=== PATIENT | female | born 1950 | race Caucasian/White ===

== ENCOUNTER 2020-11-18 10:00 | Outpatient (REF) | payer MEDICARE, SELFPAY ==
--- NOTE | ~2020-11-18 | US_ITS ---
EXAMINATION: US VENOUS ULTRASOUND WITH DOPPLER LOWER EXTREMITY, LEFT CLINICAL INFORMATION: Left calf pain. COMPARISON: None TECHNIQUE: Ultrasound of the deep veins is performed from the hip to the calf with compression sonography and color and pulse Doppler assessment. Spectral analysis with color-flow imaging is performed. FINDINGS: There is normal venous compression and respiratory variation and augmented flow. The visualized common femoral vein, superficial femoral vein, profunda femoral vein, popliteal vein, and the trifurcation region shows no evidence of deep venous thrombosis. There is no significant popliteal fossa cyst. If the patient's symptoms persist, followup ultrasound in 5 days 7 days might be of value to exclude proximal propagation from a non-visualized calf vein. US/US venous duplex LE LT IMPRESSION: No deep venous thrombosis demonstrated in the left lower extremity.
== END 2020-11-18 10:01 | disposition home or self-care (01) ==
LOC: HO.HMGCX 10:00
PROVIDERS: Visit Provider Internal Medicine
DX: M79.662 Pain in left lower leg (principal)
CPT/HCPCS: 93971

== ENCOUNTER → 2022-09-14 08:36 | Outpatient (BNVA) | payer MEDICARE, SELFPAY | PROVIDERS: PCP Internal Medicine; Visit Provider Internal Medicine Cardiovascular Disease | DX: R07.89 Other chest pain (principal); E78.5 Hyperlipidemia, unspecified | CPT/HCPCS: 93005; 99202 ==

== ENCOUNTER → 2022-09-28 09:30 | Outpatient (REF) | payer MEDICARE, SELFPAY ==
--- NOTE | 2022-09-28 09:35 | CA_ITS ---
Transthoracic Echocardiogram Patient (Last, First, Middle): Chiqui Valdez, Gender: Female Date of : 1950 Age: 72 Procedure Date: 09/28/2022 Procedure Type: Transthoracic Echocardiogram Location: OP Height: 152.4 cm Weight: 63.5 kg BSA: 1.60 m2 Heart Rate: 79 bpm BP: 155 / 82 mmHg Field Auto Appraiser: LISETH Referring MD: Chester Jackson MD Asbestos Removal Supervisor: Chester Jackson MD Symptoms: I10 - Essential (primary) hypertension Study Quality: Adequate ECG Rhythm: Sinus Conclusions: - 1. Normal LV systolic function with grade 1 diastolic dysfunction 2. Normal cardiac valvular Doppler 3. Normal RV systolic pressure 4. No pericardial effusion Findings Left Ventricle Normal left ventricular size, thickness, and systolic function. The visually estimated ejection fraction is between 60-65%. Spectral Doppler is indicative of an impaired relaxation filling pattern. E/E prime ratio is <8, consistent with normal filling pressures. Evidence suggests grade I (mild) diastolic dysfunction. Right Ventricle Normal right ventricular cavity size and systolic function. Atria Both atria are normal in size. Aortic Valve Normal aortic valve structure and function. There is no aortic valve stenosis. There is no aortic valve regurgitation. Mitral Valve Normal mitral valve structure and function. There is trace mitral valve regurgitation. There is no mitral valve stenosis. Pulmonic Valve The pulmonic valve is likely normal. Tricuspid Valve Normal tricuspid valve structure. There is trace tricuspid valve regurgitation. The right ventricular systolic pressure is normal. The right ventricular systolic pressure is 10 mmHg. Normal right atrial pressure. There is no evidence of pulmonary hypertension. Great Vessels All visible segments of the aorta are normal in size. The pulmonary artery was not well visualized. Venous The inferior vena cava is normal in size and collapses greater than 50% with inspiration. Pericardium/Pleural There is no evidence of pericardial effusion. Prior Study Comparison No prior study available for comparison. Measurements 2D Linear Measurements IVSd: 0.96 0.6-0.9/0.6-1.0 cm LVIDd: 3.68 3.9-5.3/4.2-5.9 cm LVIDd Index: 2.30 2.4-3.2/2.2-3.1 cm/m2 LVIDs: 2.56 2.0-3.6 cm LVPWd: 0.83 0.7-1.1 cm LA Diam: 2.70 2.7-3.8/3.0-4.0 cm LAIDs Index: 1.69 1.5-2.3 cm/m2 LV Mass: 119.04 67-162/88-224 g LV Mass Index: 74.40 43-95/49-115 g/m2 LVOT Diam: 2.00 3.0+(-)1.3 cm 2D Systolic Function EF 4C: 61.90 >55% EF 2C: 64.20 >55% EF BiP: 63.40 >55% Mitral Valve MV Pk E: 0.78 MV PK A: 0.88 MV Decel Time: 214.00 E/A: 0.90 E'Lateral: 10.40 E'Medial: 8.49 E/E' Med: 9.20 E/E' Lat: 7.50 PHT: 63.00 MVA PHT: 3.49 Decel [place]: 3.65 Aortic Valve AoV Pk Butch: 1.29 AoV Mn Butch: 0.87 AoV VTI: 0.27 AoV Pk Grad: 7.00 Aov Mn Grad: 3.00 AMANUEL Cont.VTI: 2.92 LVOT LVOT Pk Butch: 1.17 LVOT Mn Butch: 0.72 LVOT VTI: 0.25 LVOT Pk Grad: 5.00 LVOT Mn Grad: 2.00 LVOT Diam: 2.00 LVOT Area: 3.14 Diastolic Function MV Pk E: 0.78 MV Pk A: 0.88 E/A: 0.90 E'Medial: 8.49 E/E' Med: 9.20 E' Laterial: 10.40 E/E' Lat: 7.50 Right Ventricle TAPSE (mm): 24.80 TVS' Butch: 13.60 Tricuspid Valve TR Pk Butch: 1.36 TR Pk Grad: 7.00 RA Press: 3.00 RVSP: 10.00 Great Vessels Aorta Sinus of Valsalva: 2.96 2.0-3.[address] Ridge: 2.26 1.7-3.4 cm Updated in Other Vendor System with Status of Final Chester Jackson MD electronically signed on 09/29/2022 1:21:59 PM with status of Final
== END ==
LOC: HO.CARD 09:30
PROVIDERS: Visit Provider Internal Medicine Cardiovascular Disease
DX: I10 Essential (primary) hypertension (principal)
CPT/HCPCS: 93306

== ENCOUNTER → 2022-11-16 08:35 | Outpatient (BNVA) | payer MEDICARE, SELFPAY | PROVIDERS: PCP Internal Medicine; Referring Provider Internal Medicine; Visit Provider Internal Medicine Cardiovascular Disease | DX: E78.5 Hyperlipidemia, unspecified (principal) | CPT/HCPCS: 99212 ==

== ENCOUNTER 2025-08-21 06:27 | Day surgery (SDC) | payer MEDICARE, SELFPAY ==
--- OUTSIDE RECORDS SUMMARY | 2024-07-19 06:15 | XMS_ITS ---
Author Organization [facility] Address [address] [place] [address] Care Team Providers Care Real Estate Account Executive Name Role Phone Jorge WALKER, Daljit Primary Care Provider UnavailJosey Barroso Unavailable [phone] Laura Chen [phone] Encounters Encounter Location Date Provider Diagnosis [address] [address] 07/19/2024 Laura Chen Plan Of Treatment Next Appt Details Provider Name:Jimena henderson, 09/18/2025 11:00:00 AM, [address] [place], [address], Progress Notes * Jade COON LDOB: [birth year] (74 yo F)Acc No.[id number]:07/19/2024 Progress Note Patient: Jade PARRA Provider: Jenny Chen DPM :1950 A ge:73 Y S ex:Female Date:07/19/2024 Address:[address] [place], [place] [address], [place] Pcp:Daljit Patel MD Subjective: * Chief Complaints: * * Medical History: Objective: * Vitals: Assessment: Plan: * Treatment: * Images: * The named appointment provid er may or may not be the originator of this progress note, and it is not deemed complete until electronically signed by the appointment provider. Sign off status: Pending * Provider: Jenny Chen DPM Date: 09/18/2023 Generated for Evette Lujan on: 09/30/2024 05:00 PM EST
--- OUTSIDE RECORDS SUMMARY | 2024-09-20 09:15 | XMS_ITS ---
Author Organization [facility] Address [address] [place] [address] Care Team Providers Care Cops Name Role Phone Jorge WALKER, Daljit Primary Care Provider UnavailJosey Barroso Unavailable [phone] Laura Chen [phone] Encounters Encounter Location Date Provider Diagnosis [address] [address] 09/20/2024 Laura Chen Plan Of Treatment Next Appt Details Provider Name:Jimena henderson, 09/18/2025 11:00:00 AM, [address] [place], [address], Progress Notes * Jade COON LDOB: [birth year] (74 yo F)Acc No.[id number]:09/20/2024 Progress Note Patient: Jade PARRA Provider: Jenny Chen DPM :1950 A ge:74 Y S ex:Female Date:09/20/2024 Address:[address] [place], [place] [address] Pcp:Daljit Patel MD Subjective: * Chief Complaints: * * Medical History: Objective: * Vitals: Assessment: Plan: * Treatment: * Images: * The named appointment provid er may or may not be the originator of this progress note, and it is not deemed complete until electronically signed by the appointment provider. Sign off status: Pending * Provider: Jenny Chen DPM Date: 0 09/20/2024 Generated for Evette Luajn on: 09/30/2024 05:01 PM EST
--- OUTSIDE RECORDS SUMMARY | 2024-10-25 09:30 | XMS_ITS ---
Author Organization [facility] Address [address] [place] [address] Care Team Providers Care Field Nurse Name Role Phone Jorge WALKER, Daljit Primary Care Provider UnavailJosey Barroso Unavailable [phone] Laura Chen [phone] Encounters Encounter Location Date Provider Diagnosis [address] [address] 10/25/2024 Laura Chen Plan Of Treatment Next Appt Details Provider Name:Jimena henderson, 09/18/2025 11:00:00 AM, [address] [place] [address], [address], Progress Notes * Jade COON LDOB: [birth year] (74 yo F)Acc No.[id number]:10/25/2024 Progress Note Patient: Jade PARRA Provider: Jenny Chen DPM :1950 A ge:74 Y S ex:Female Date:10/25/2024 Address:[address] [place], [place] [address] Pcp:Daljit Patel MD Subjective: * Chief Complaints: * * Medical History: Objective: * Vitals: Assessment: Plan: * Treatment: * Images: * The named appointment provid er may or may not be the originator of this progress note, and it is not deemed complete until electronically signed by the appointment provider. Sign off status: Pending * Provider: Jenny Chen DPM Date: 0 10/25/2024 Generated for Evette Lujan on: 09/30/2024 05:01 PM EST
--- OUTSIDE RECORDS SUMMARY | 2024-12-13 05:30 | XMS_ITS ---
Author Organization [facility] Address [address] [place] [address] Care Team Providers Care Russet Repairer Name Role Phone Jorge WALKER, Daljit Primary Care Provider UnavailJosey Barroso Unavailable [phone] Laura Chen [phone] Encounters Encounter Location Date Provider Diagnosis [address] [address] 12/13/2024 Laura Chen Plan Of Treatment Next Appt Details Provider Name:Jimena henderson, 09/18/2025 11:00:00 AM, [address] [place], [address], Progress Notes * Jade COON LDOB: [birth year] (74 yo F)Acc No.[id number]:12/13/2024 Progress Note Patient: Jade PARRA Provider: Jenny Chen DPM :1950 A ge:74 Y S ex:Female Date:12/13/2024 Address:[address] [place], [place] [address], [place] Pcp:Daljit Patel MD Subjective: * Chief Complaints: * * Medical History: Objective: * Vitals: Assessment: Plan: * Treatment: * Images: * The named appointment provid er may or may not be the originator of this progress note, and it is not deemed complete until electronically signed by the appointment provider. Sign off status: Pending * Provider: Jenny Chen DPM Date: 0 12/13/2024 Generated for Evette Lujan on: 09/30/2024 05:02 PM EST
--- OUTSIDE RECORDS SUMMARY | 2025-01-09 04:00 | XMS_ITS ---
Author Organization [facility] Address [address] [place] [address] Care Team Providers Care Local Sales Associate Name Role Phone Daljit Patel MD Primary Care Provider Unavaila Josey Rust Unavailable [phone] Laura Chen [phone] Encounters Encounter Location Date Provider Diagnosis [address] [address] 01/09/2025 Laura Chen Plan Of Treatment Next Appt Details Provider Name:Jimena henderson, 09/18/2025 11:00:00 AM, [address] [place], [address], Progress Notes * Jade COON LDOB: [birth year] (74 yo F)Acc No.[id number]:01/09/2025 Progress Note Patient: Jade PARRA Provider: Jenny Chen DPM :1950 A ge:74 Y S ex:Female Date:01/09/2025 Address:[address] [place], [place] [address], [place] Pcp:Daljit Patel MD Subjective: * Chief Complaints: * * Medical History: Objective: * Vitals: Assessment: Plan: * Treatment: * Images: * The named appointment provid er may or may not be the originator of this progress note, and it is not deemed complete until electronically signed by the appointment provider. Sign off status: Pending * Provider: Jenny Chen DPM Date: 0 01/09/2025 Generated for Evette Dietz/[place] on: 09/30/2024 05:00 PM EST
--- OUTSIDE RECORDS SUMMARY | 2025-02-01 08:30 | XMS_ITS ---
Author Organization [facility] Address [address] [place] [address] Care Team Providers Care Wash Worker Name Role Phone Daljit Patel MD Primary Care Provider UnavailJosey Barroso [phone] Medications Medication SIG (Take, Route, Fr equency, Duration) Notes Start Date End Date Status Crestor 5 MG 1 tablet Orally Once a day Active Diovan 80 MG 1 tablet Orally Once a day Active Simvastatin 20 MG 1 tablet in the even ing Orally Once a day Not-Taking Encounters Encounter Location Date Provider Diagnosis [address] [address] 02/01/2025 Josey Zhu Plan Of Treatment Next Appt Details Provider Name:Jimena Xiao santiago, 09/18/2025 11:00:00 AM, [address] [place] [address], [address], Progress Notes * Paloma COONann LDOB: [birth year] (74 yo F)Acc No.[id number]:02/01/2025 Progress Note Patient: Jade PARRA Provider: Kiesha Zhu DPM :1950 A ge:74 Y S ex:Female Date:02/01/2025 Address:[address] [place], [place] [address] Pcp:Daljit Patel MD Subjective: * Chief Complaints: * * Medical History: * Medications: T aking Crestor 5 MG Tablet 1 tablet Orally Once a day , Taking Diovan 80 MG Tablet 1 tablet Orally Once a day , Not-Taking/PRN Simvastatin 20 MG Tablet 1 tablet in the evening Orally Once a day Objective: * Vitals: Assessment: Plan: * Treatment: * Images: * The named appointment provid er may or may not be the originator of this progress note, and it is not deemed complete until electronically signed by the appointment provider. Sign off status: Pending * Provider: Kiesha Zhu DPM Date: 0 02/01/2025 Generated for Evette joseph/Stanislav/[place]lem on: 09/30/2024 05:01 PM EST
--- OUTSIDE RECORDS SUMMARY | 2025-03-08 08:15 | XMS_ITS ---
Author Organization [facility] Address [address] [place] [address] Care Team Providers Care Risk Reduction Counselor Name Role Phone Jorge WALKER, Daljit Primary Care Provider Josey Kerns [phone] Encounters Encounter Location Date Provider Diagnosis [address] [address] 03/08/2025 Josey Zhu Plan Of Treatment Next Appt Details Provider Name:Jimena Xiao santiago, 09/18/2025 11:00:00 AM, [address] [place], [address], Progress Notes * Jade COON LDOB: [birth year] (74 yo F)Acc No.[id number]:03/08/2025 Progress Note Patient: Jade PARRA Provider: Kiesha Zhu DPM :1950 A ge:74 Y S ex:Female Date:03/08/2025 Address:[address] [place], [place] [address], [place] Pcp:Daljit Patel MD Subjective: * Chief Complaints: * * Medical History: Objective: * Vitals: Assessment: Plan: * Treatment: * Images: * The named appointment provid er may or may not be the originator of this progress note, and it is not deemed complete until electronically signed by the appointment provider. Sign off status: Pending * Provider: Kiesha Zhu, CHIRAG Date: 0 03/08/2025 Generated for Evette joseph/Stanislav/[place] on: 09/30/2024 05:01 PM EST
--- OUTSIDE RECORDS SUMMARY | 2025-07-31 17:00 | XMS_ITS | Encounter Summary ---
Author Organization [facility] Address [address] [place] [address] Phone Care Team Providers Care Family Services Coordinator Name Role Phone Daljit Patel MD Primary Care Provider [phone] Merlene Liu MD Unavailable [phone] [place] Lopez DO Unavailable [phone] Terrence Michael MD Unavailable Alexsander Rahman MD Unavailable [phone] Daljit Patel MD Unavailable [phone] Reason for Visit * Reason Onset Date Comments Change ultrasound order 07/10/2025 Encounter Details Date Type Department Care Team (Late st Contact Info) Description 07/10/2025 Telephone [facility] Internal Medicine [address] [place], [place] [phone] Daljit Patel MD [address] [place] [address] [email or web address] Change ultrasound order Social History Tobacco Use Types Packs/Day Years Used Date Smoking Tobacco: Never Smokeless Tobacco: Never Alcohol Use Standard Drinks/Week Comments Never 0 (1 standard drink = 0.6 oz pur e alcohol) Child or Family Care Answer Date Record ed Do you have problems with on e of the following making it difficult for you to work, study, or receive health care? No 01/23/2021 Education Answer Date Recorded Are you interested in more education? Not on raf e 01/29/2023 Are you concerned about learning? Not on file 01/29/2023 No 01/29/2023 No 01/29/2023 Food Answer Date Recorded Within the past 6 months we worried whether our food would run out before we got money to buy more. Never True 01/23/2021 Within the past 6 months the food we bought just didn't last and we didn't have enough money to get more. Never True Paying for Meds Answer Date Recorded Do you have trouble paying for medicines? No 01/23/2021 Paying Utility Bills Answer Date Record ed Do you have trouble paying your heating or elect ricity bill? No 01/23/2021 Transportation Answer Date Recorded Has the lack of transportati on kept you from medical appointments or from getting medications? No 01/23/2021 Unemployment Answer Date Recorded Are you currently unemployed or working on a part-time or temporary basis, and looking for work? No 01/23/2021 Digital Access Answer Date Recorded No 02/06/2023 No 02/06/2023 Reliable internet access at home? Not on file 02/06/2023 Device with a working camera? Not on file Intimate Partner Violence Answer Date R ecorded Denied Basic Needs Not on file 05/31/2025 In the past 12 months have y ou been in a relationship with a person who hurts, threatens, or tries to control you? No 05/31/2025 Worried food would run out Not on file 05/31 In the past 12 months have y ou been in a relationship with a person who hurts, threatens, or tries to control you? No 05/31/2025 Comments No Sex and Gender Information Value Date Recorded Sex Assigned at Not on file Legal Sex Female 6:03 PM EST Gender Identity Not on file Sexual Orientation Not on file documented as of this encounter Progress Notes * Renée Jacob PA-C - 07/12/2025 10:33 AM EDT Noted. * Fer Saldivar - 07/12/2025 10:30 AM EDT Called patient as we have not heard from [facility] to make sure she was all set. Spoke to patient and she ended up having the ultrasound done. * Renée Jacob PA-C - 07/12/2025 9:44 AM EDT Noted, please keep me updated regarding the imaging orders as a limited abdominal ultrasound is really all that is indicated for this patient based off of her symptoms. * Fer Saldivar - 07/12/2025 9:31 AM EDT Patient called in states she is at [facility] and is stating that they are telling her she needs an order for the entire abdomen per Radiology. I asked her to have the manufacturing tech call me directly as they told us 2 days ago the order was okay. * Renée Jacob PA-C - 07/10/2025 9:54 AM EDT Noted, thanks. * Uche Mendez - 07/10/2025 9:33 AM EDT Made call to [facility], spoke with antione informed of Ronak's message. She checked with a tech and they said the order is fine since they know we are looking for the issue with the appendix. The order they have is okay. * Renée Jacob PA-C - 07/10/2025 9:06 AM EDT We have no specific US order for appendix, just limited abdominal US. * Fer Saldivar - 07/10/2025 8:50 AM EDT Antione from [facility] Radiology called stating that patient is coming in today but the abdomen ultrasound order is incorrect and needs to be ultrasound appendix specifically. Needs new order faxed to [phone] documented in this encounter Plan of Treatment Upcoming Encounters Date Type Department Care Team (Late st Contact Info) Description 08/09/2025 2:00 PM EST Office Visit [facility] Internal Medicine [address] [place] [address] Daljit Patel MD [address] [place] [address] documented as of this encounter Visit Diagnoses Not on filedocumented in this encounter Additional Health Concerns Assessment Noted Time PHQ-2 Depression Total Score: 0 05/23/20 25 3:28 PM EDT documented as of this encounter Care Teams Family Services Coordinator Relationship Specialty Start Date End Date Daljit Patel MD [address] [place] [address] PCP - General Internal Medicine 03/28/20 Merlene Liu MD [address] [place] [address] [email or web address] Endocrinology 07/10/20 [place] Lopez DO [address] [place] [address] 07/10/20 Terrence Michael MD [address] [place] [address] Internal Medicine 07/10/20 Alexsander Rahman MD [address] [place] [address] Surgical Oncology 07/10/20 Daljit Patel MD [address] [place] [phone] Insurance Assigned Provider 12/17/23 documented as of this encounter Additional Source Comments The information contained in this document represents components of the legal health record. It is not the complete legal health record.[facility]
--- OUTSIDE RECORDS SUMMARY | 2025-07-31 17:00 | XMS_ITS | Encounter Summary ---
Author Organization [facility] Address [address] [place] [address] [place] [address] Phone Care Team Providers Care Dialysis Clinical Manager Name Role Phone Daljit Patel MD Primary Care Provider [phone] Merlene Liu MD Unavailable [phone] [place] Lopez DO Unavailable Terrence Michael MD Unavailable [phone] Alexsander Rahman MD Unavailable [phone] Daljit Patel MD Unavailable [phone] Reason for Visit * Reason Onset Date Comments Question on labs 05/24/2025 Encounter Details Date Type Department Care Team (Late st Contact Info) Description 05/24/2025 Telephone [facility] Internal Medicine [address] [place], [place] [phone] Daljit Patel MD [address] [place] [address] [email or web address] Question on labs Social History Tobacco Use Types Packs/Day Years [...] ecorded Denied Basic Needs Not on file 05/02/2024 In the past 12 months have y ou been in a relationship with a person who hurts, threatens, or tries to control you? No 05/02/2024 Worried food would run out Not on file 05/02 In the past 12 months have y ou been in a relationship with a person who hurts, threatens, or tries to control you? No 05/02/2024 Comments No Sex and Gender Information Value Date Recorded Sex Assigned at Not on file Legal Sex Female 6:03 PM EST Gender Identity Not on file Sexual Orientation Not on file documented as of this encounter Progress Notes * Fer Saldivar - 05/24/2025 4:59 PM EDT Patient called wondering about her urine results and if she has a UTI. Spoke with provider who states we need to wait to see a culture. Relayed message to patient who was appreciative. documented in this encounter Plan of Treatment Upcoming Encounters Date Type Department Care Team (Late st Contact Info) Description 08/09/2025 2:00 PM EST Office Visit [facility] Internal Medicine [address] [place] [address] Daljit Patel MD [address] [place] [address] documented as of this encounter Visit Diagnoses Not on filedocumented in this encounter Additional Health Concerns Assessment Noted Time PHQ-2 Depression Total Score: 0 05/23/20 25 3:28 PM EDT documented as of this encounter Care Teams Dialysis Clinical Manager Relationship Specialty Start Date End Date Daljit Patel MD [address] [place] [phone] PCP - General Internal Medicine 03/28/20 Merlene Liu MD [address] [place] [phone] [email or web address] Endocrinology 07/10/20 [place] Lopez DO [address] [place] [address] 07/10/20 Terrence Michael MD [address] [place] [phone] Internal Medicine 07/10/20 Alexsander Rahman MD [address] [place] [phone] Surgical Oncology 07/10/20 Daljit Patel MD [address] [place], [place] [phone] [email or web address] Insurance Assigned Provider 12/17/23 documented as of this encounter Additional Source Comments The information contained in this document represents components of the legal health record. It is not the complete legal health record.[facility]
--- OUTSIDE RECORDS SUMMARY | 2025-07-31 17:00 | XMS_ITS | Encounter Summary ---
Author Organization [facility] Address [address] [place] [address] Phone Care Team Providers Care Trimming Inspector Name Role Phone Daljit Patel MD Primary Care Provider [phone] Merlene Liu MD Unavailable [phone] Diana Lopez DO Unavailable [phone] Terrence Michael MD Unavailable [phone] Alexsander Rahman MD Unavailable Daljit Patel MD Unavailable [phone] Reason for Visit * Reason Comments Medication Refill Encounter Details Date Type Department Care Team (Late st Contact Info) Description 07/21/2025 Refill [facility] [address] [place], [place] [phone] Daljit Patel MD [address] [place] [address] [email or web address] Medication Refill Social History Tobacco Use Types Packs/Day Years [...] as of this encounter Progress Notes * Toña Umanzor CMA - 07/22/2025 8:01 AM EST Rx Care Gap Status - Instructions for Clinical Staff (prescriber discretion applies): > Mismatch review guide > N/a - No action needed Visit Info Last visit: 07/03/2025 Renée Jacob PA-C - Internal Medicine [facility] > Requested f/u: Return if symptoms worsen or fail to improve. Upcoming visit: 08/09/2025 Daljit Patel MD - [facility] ACTIONS TAKEN BY Toña Umanzor CMA - Updated rx duration per protocol. Cholesterol Medication Rx Protocol - rosuvastatin calcium Criteria met; renew for up to 12 months. Visit in the past 14 months: Yes Clinical criteria: - Lipid panel within past year: Yes Lab Results Component Value Date LDL 94 12/27/2024 HDL 73 12/27/2024 CARDIAC RISK RATIO 2.5 (L) 12/27/2024 TRIGLYCERIDES 59 12/27/2024 CHOLESTEROL 179 12/27/2024 documented in this encounter Plan of Treatment Upcoming Encounters Date Type Department Care Team (Late st Contact Info) Description 08/09/2025 2:00 PM EST Office Visit [facility] Internal Medicine [address] [place] [address] Daljit Patel MD [address] [place] [address] [email or web address] documented as of this encounter Visit Diagnoses Diagnosis Hyperlipidemia Other and unspecified hyperlipidemia documented in this encounter Additional Health Concerns Assessment Noted Time PHQ-2 Depression Total Score: 0 05/23/20 25 3:28 PM EDT documented as of this encounter Care Teams Trimming Inspector Relationship Specialty Start Date End Date Daljit Patel MD [address] [place] [address] [email or web address] PCP - General Internal Medicine 03/28/20 Merlene Liu MD [address] [place] [address] [email or web address] Endocrinology 07/10/20 Diana Lopez DO [address] [place] [phone] 07/10/20 Terrence Michael MD [address] [place] [address] [id number] Internal Medicine 07/10/20 Alexsander Rahman MD [address] [place] [address] Surgical Oncology 07/10/20 Daljit Paetl MD [address] [place] [address] Insurance Assigned Provider 12/17/23 documented as of this encounter Additional Source Comments The information contained in this document represents components of the legal health record. It is not the complete legal health record.[facility]
--- OUTSIDE RECORDS SUMMARY | 2025-07-31 17:00 | XMS_ITS | Encounter Summary ---
Author Organization [facility] Address [address] [place] [address] Phone Care Team Providers Care Social Worker Palliative Care Name Role Phone Daljit Patel MD Primary Care Provider [phone] Merlene Liu MD Unavailable [phone] Diana Lopez DO Unavailable [phone] Terrence Michael MD Unavailable Alexsander Rahman MD Unavailable [phone] Daljit Patel MD Unavailable [phone] Reason for Visit * Reason Onset Date Comments Continued abdominal pain 06/28/2025 Encounter Details Date Type Department Care Team (Late st Contact Info) Description 06/28/2025 Telephone [facility] Internal Medicine [address] [place], [place] [phone] Daljit Patel MD [address] [place] [address] [email or web address] Continued abdominal pain Social History Tobacco Use Types Packs/Day Years [...] as of this encounter Progress Notes * Donna Calhoun - 07/09/2025 4:32 PM EDT New US Orders faxed to [facility] [phone]/confirmation received * Donna Calhoun - 07/09/2025 4:20 PM EDT [facility] states they need new US orders - US order for Appendix and US order for Renal - and fax to [phone] * Donna Calhoun - 07/09/2025 4:03 PM EDT Spoke to Carlie at [facility] and advise of rule out * Renée Jacob PA-C - 07/09/2025 3:46 PM EDT Rule out appendicitis/kidney stone * Donna Calhoun - 07/09/2025 3:36 PM EDT Received call from Carlie at [facility] - patient has US scheduled for tomorrow and they need to know what US is ruling out or they will have to cancel appt - please advise Will contact Carlie at [phone] option 2 to relay rule out * Fer Saldivar - 07/01/2025 9:36 AM EDT Spoke to patient and she does have colonoscopy scheduled for August 21 could not get an earlier date. She states she would like to see [facility] for this. Scheduled 07/01 (gave 40 min) * Daljit Patel MD - 06/28/2025 7:14 PM EDT I think she should think about getting her colonoscopy set up if she has not done so. Put her on cancellation list to see me in a few weeks or she can see someone else here sooner. * Fer Saldivar - 06/28/2025 4:04 PM EDT Patient called states provider told her if she continues with the intermittent abdominal pain to let him know and he will get her in . Please advise as she states she is still having it. documented in this encounter Plan of Treatment Upcoming Encounters Date Type Department Care Team (Late st Contact Info) Description 08/09/2025 2:00 PM EST Office Visit [facility] Internal Medicine [address] [place] [address] Daljit Patel MD [address] [place] [address] [email or web address] documented as of this encounter Procedures Procedure Name Priority Date/Time Associated Diagnosis Comments US KIDNEYS Routine 07/09/2025 4:24 PM EDT Right flank pain Lower abdominal pain US ABDOMEN LIMITED Routine 07/09/2025 4:24 PM EDT Lower abdominal pain documented in this encounter Visit Diagnoses Diagnosis Right flank pain- Primary Abdominal pain, unspecified site Lower abdominal pain Abdominal pain, other specified site documented in this encounter Additional Health Concerns Assessment Noted Time PHQ-2 Depression Total Score: 0 05/23/20 25 3:28 PM EDT documented as of this encounter Care Teams Social Worker Palliative Care Relationship Specialty Start Date End Date Daljit Patel MD [address] [place] [address] [email or web address] PCP - General Internal Medicine 03/28/20 Merlene Liu MD [address] [place] [address] [email or web address] Endocrinology 07/10/20 Diana Lopez DO [address] [place] [address] 07/10/20 Terrence Michael MD [address] [place] [address] Internal Medicine 07/10/20 Alexsander Rahman MD [address] [place] [address] Surgical Oncology 07/10/20 Daljit Patel MD [address] [place] [address] Insurance Assigned Provider 12/17/23 documented as of this encounter Additional Source Comments The information contained in this document represents components of the legal health record. It is not the complete legal health record.[facility]
--- OUTSIDE RECORDS SUMMARY | 2025-07-31 17:01 | XMS_ITS | Data Portability ---
Author Organization [place] [facility] Address [address] [place] [phone] Assessment Encounter Date Assessment Date Assessment LastModified by Organization Details LastModified Time 04/18/2024 04/18/2024 73 year old female with three weeks of intermittent left sided sore throat. History of burning mouth syndrome and LPR. On examination today her oral mucosa is normal in appearance. There is no mucosal tongue abnormality as questioned. Tonsils are small and normal in appearance. There is no adenopathy. Fiberoptic laryngoscopy is normal with the exception of some mild arytenoid swelling. Reassurance was provided there is nothing concerning on exam. Her sore throat could be viral, environmental, or reflux related. Recommend she start Pepcid at bedtime for six weeks. She can also use salt water gargles. She will contact me if symptoms do not improve or worsen. 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 Lab None recorded . Referral None recorded . Procedures None recorded . Surgeries None recorded . Imaging None recorded . Medication Orders Pepcid 20 mg tablet 024 04/18/20 24 perfecto [id number], [address] [facility], [place], [address], 4 10:01:49 Patient TargetsNo targets recorded. Patient InstructionsNo instructions recorded. Reason for Referral None Reported. Problems Name Problem SNOMED Code Status Onset Date Resolution Date Notes Provider Name and Address Organization Details Recorded Time Allergic rhinitis 17848766 Active 2018 Other allergic rhinitis; Note: Date Diagnosed : 05/02/2019 11:28 AM (J30.89) Not Available [facility] 4 02:17:46 Headache 38239015 Active 2018 Facial pain NOS; Note: Date Diagnosed : 05/02/2019 11:25 AM (R51) Not Available [facility] 4 02:17:20 Pharyngea l dysphagia 37018008905 105 Active 2019 Dysphagia , pharyngea l phase; Note: Date Diagnosed : 12/19/2019 2:25 PM (R13.13) Not Available [facility] 4 02:17:26 Gastroeso phageal reflux disease without esophagit is 620670604 Active 2019 Gastro-es ophageal reflux disease without esophagit is; Note: Date Diagnosed : 12/19/2019 2:25 PM (K21.9) Not Available [facility] 4 02:17:49 Pain in throat 933281798 Active 2023 Zayda torres [place] - [facility] 4 12:19:10 Problem Notes None recorded. Procedures Surgical History Date Name Laterality Status Provider Name and Address Organization Details Recorded Time 04/18/20 24 Fiberoptic Laryngoscopy (Comprehensive) completed Zayda Barakat [place] - [facility] 04/18/2024 12:18:49 Imaging Results None recorded. Procedure Notes None recorded. Medical Equipment None Reported. Allergies Allergen ID Allergen Name Allergen Category Reaction Reaction Severity Criticality Documentation Date Start Date Code Code System Note Provider Name and Address Organization Details Recorded Time 17007 Bactrim medicatio n hives Not available Not available 01/24/2024 06942 9 RxNorm React ion: Hives ; Not Available [facility] 4 00:49:26 89930 Macrobid medicatio n Not available Not available Not available 01/24/2024 98676 1 RxNorm React ion: Liver funct ion tests abnor mal; Not Available [facility] 4 00:49:41 Medications Name Sig Start Date Stop Date Status Note LastModified by Organization Details LastModified Time Prescripti on - Renewal active Not Available Not Available Not Available valacyclov ir 1 gram tablet TAKE 2 TABLETS BY MOUTH AT THE FIRST SIGN OF OUTBREAK, AND THEN TAKE 2 TABLETS BY MOUTH 12 HRS LATER active Not Available Not Available No t Available Diovan 80 mg tablet active Not Available Not Available No t Available famotidine 20 mg tablet TAKE 1 TABLET EVERY DAY BY ORAL ROUTE AT BEDTIME FOR 45 DAYS. 2023 active Not Available Not Available Not Avai lable lorazepam 0.5 mg tablet active Not Available Not Available Not Available erythromyc in 5 mg/gram (0.5 %) eye ointment APPLY 1/4 INCH STRIP INTO LEFT EYE AT BEDTIME NEEDED active Not Available Not Available No t Available fluoxetine 10 mg capsule active Not Available Not Available Not Available mupirocin 2 % topical ointment APPLY TWICE A DAY TO OPEN SKIN active Not Available Not Available No t Available estradiol 0.01% (0.1 mg/gram) vaginal cream PLEASE SEE ATTACHED FOR DETAILED DIRECTION S active Not Available Not Available No t Available fluticason e propionate 50 mcg/actuat ion nasal spray,susp ension 1 puff into both nostrils once a day 2018 active Medicatio n ID: [id number] Du ration Value: 30 Prescrib ed By Name: Ildefonso Paula MD Brand Name: fluticaso ne propionat e Send Method: E-Prescri bed Subs Allowed: subs [place] Medica tionGener icName: fluticaso ne propionat e Not Available Not Available Not Available rosuvastat in 5 mg tablet active Not Available Not Available Not Available Vitals Date Recorded Body height Body mass index (BMI) Body weight Provider Name and Address Organization Details Last Updated DateTime 04/18/2024 154.94 cm 25.5 kg/m2 35237.97 g Elizabeth Rodriguez [place] - [facility] 04/18/2024 11:13:10 Social History None recorded. Functional Status None recorded. Mental Status None recorded. Family History Nothing Reported. Medical History No medical history recorded. Gynecological HistoryNo gynecological history recorded. Obstetrics History GPAL:G 0 P 0 0 0 0 Past Encounters Encounter ID Performer Location Encounter Start Date Encounter Closed Date Diagnosis/Indication Diagnosis SNOMED-CT Code Diagnosis ICD10 Code Diagnosis IMO Codes Diagnosis Note [id number] ZAYDA BARAKAT PA-C [facility] on [address] [place] [phone] 2 04/18/2024 11:06:08 04/18/2024 13:38:02 Pain in throat 035638905 R07.0 Gastroesop hageal reflux disease without esophagitis 519160741 K21.9 Health Concerns Section Related Observation LastModified by Organization Detai ls LastModified Time None Recorded Concern Status LastModified by Organization Details LastModified Time None Recorded Advance Directives Directive None Recorded Payers Insurance Date Sequence Insurance Name Policy Number Policy Vega Covered Member ID Vega Member ID Guarantor Name 04/16/2024 1 [place] [employer] Chiqui Dillardrien [id number] Chiqui Dillardrien 04/16/2024 2 [place] [id number] Chiqui Dillardrien [id number] Chiqui Dillardrien Notes Date Note Type Note Provider Name and Address Organization Details Recorded Time 04/18/2024 text/html ROS as noted in the HPI 73 year old female with a history of burning mouth syndrome, presents today with three to four weeks of left sided throat and neck pain.The pain is intermittent. She has no trouble swallowing. Reports some associated left tongue irritation as well. She is a lifetime non smoker.History of LPR in the past. Notes occasional heartburn currently. History cervical spine spondylosis. She is unsure if this may be related to her symptoms. Zayda torres [place] - [facility] 04/18/2024 12:23:32 OBGyn Episode No OBEpisode recorded.
--- OUTSIDE RECORDS SUMMARY | 2025-07-31 17:01 | XMS_ITS | Patient Health Record ---
Author Organization [facility] Address [address] [place] [address] Care Team Providers Care Light Out Examiner Name Role Phone Daljit Patel MD Primary Care Provider Unavaila massiel Zhu Josey Unavailable [phone] Black, Laura Unavailable [phone] Jimena Chen Unavailable [phone] Allergies Allergen (clinical drug ingredient) Drug/Non Drug Allergy documented on EMR Reaction Allergy Type Onset Date Status sulfamethoxazole / trimethoprim Bactrim Unknown Drug Allergy Active nitrofurantoin, macrocrystals / nitrofurantoin, monohydrate Macrobid Unknown Drug Allergy Active Reason For Referral No Information Medications Medication SIG (Take, Route, Fr equency, Duration) Notes Start Date End Date Status Crestor 5 MG 1 tablet Orally Once a day Active Simvastatin 20 MG 1 tablet in the even ing Orally Once a day Not-Taking Diovan 80 MG 1 tablet Orally Once a day Active Immunizations Vaccine Route Administration Date Status Comme nts Influenza Unknown 06/12/2024 Administered Influenza Unknown 05/27/2025 Administered COVID-19 Pfizer BioNTech Vaccine Unknown 10/28/2020 Administered Second Dose: 11/25/2020 Social History Tobacco Use: Social History Observation Description Date Details (start date - stop date) Never Smoker NA - NA Tobacco use other than smoking: Question Answer Notes Are you an other tobacco user? No Tobacco Control (Standard) Question Answer Notes Tobacco use: Nonsmoker Additional Findings: Tobacco non-user Current no nsmoker AUDIT-C (Standard) Question Answer Notes Did you have a drink containing alcohol in the p ast year? No Points 0 Interpretation Negative Vital Signs Blood pressure diastolic 65 mm Hg 06/03/2025 Height 5ft in 06/03/2025 Blood pressure systolic 126 mm Hg 06/03/2025 Weight 135 lbs 06/03/2025 BMI 26.36 kg/m2 06/03/2025 Procedures Procedure Date Ordered Date Performed Result Body Sit e 84166-GXCPEBI NAIL, 1-5 02/18/2025 N/A 00243-Xeiczvkw Plate 02/18/2025 N/A 56772-UWTP SKIN LESIONS, OVER 4 06/03/2025 N/A D6264-YRRFSPYC DYSTROPHIC NAILS ANY # 06/03/2025 N/A Encounters Encounter Location Date Provider Diagnosis [facility] [address] 02/18/2025 Jimena Chen Ingrown nail L60.0 ; Pain in right toe(s) M79.674 and Onychomycosis B35.[address] [facility] [address] 06/03/2025 Jimena Chen Acquired keratosis [keratoderma] palmaris et plantaris L85.1 and Other nail disorders L60.[address] [place] [address] [address] 09/19/2024 Josey Roberts [facility] [address] 10/24/2024 Joseykala Zhu [facility] [address] 12/13/2024 [facility] [place] [address] [address] 01/08/2025 Laura Chen [facility] [address] 02/18/2025 Josey Zhu Assessments Encounter Date Diagnosis (ICD Code) Assessment Notes Treatment Notes Treatment Clinical Notes Section Notes 02/18/2025 Ingrown nail (ICD-10 - L60.0) 06/03/2025 Acquired keratosis [keratoderma] palmaris et plantaris (ICD-10 - L85.1) 06/03/2025 Other nail disorders (ICD-10 - L60.8) 02/18/2025 Pain in right toe(s) (ICD-10 - M79.674) 02/18/2025 Onychomycosis (ICD-10 - B35.1) Plan Of Treatment Pending Test Test Name Order Date 18237-OQPVWNQ NAIL, 6 OR MORE 12/09/2014 33952-ISVITPY NAIL, 6 OR MORE 08/04/2015 05381-GYJPPAB NAIL, -04/17/2014 47889-NUWYCOE NAIL, -03/31/2015 76873-ZNCWENF NAIL, -11/05/2015 80202-EPCVSIL NAIL, -02/04/2016 52435-IULDTQK NAIL, -02/18/2025 14291-Usdk Destruction, -02/04/2016 01129-Ipmv Destruction, -11/05/2015 88792-Sfsziras Plate 03/31/2015 64537-Eviciejb Plate 02/18/2025 80582-Zgfwipnb Plate Each Additional 62427-XGZC SKIN LESIONS, OVER 4 09/30/19 17 00362-CWPD SKIN LESIONS, OVER 4 10/20/19 18 52682-VQBW SKIN LESIONS, OVER 4 01/20/20 21 60644-QGFK SKIN LESIONS, OVER 4 06/03/20 25 42169-QGKB SKIN LESIONS, OVER 4 07/05/20 24 91461-ZJAX SKIN LESIONS, OVER 4 07/16/20 22 31535-LPMW SKIN LESIONS, OVER 4 10/29/19 23 65184-LYOA NAIL(S) 10/20/2017 60776-PVSZ NAIL(S) 09/30/2016 C9453-JZDDOGDY DYSTROPHIC NAILS ANY # F9470-EHITYRAV DYSTROPHIC NAILS ANY # O1384-LKIJDKYE DYSTROPHIC NAILS ANY # X2463-UUUDZUAJ DYSTROPHIC NAILS ANY # V7760-BUGASNNE DYSTROPHIC NAILS ANY # Next Appt Details Provider Name:Jimena Xiao santiago, 09/18/2025 11:00:00 AM, [address] [place] [address], [place], [address], Insurance Providers Payer Name Payer Address Payer Phone Subscriber Number Group Number Insured Name Patient Relationship to Insured Coverage Start Date Coverage End Date Medicare National [facility] [address] [place] [address] [id number] Jade Mg Self - patient is the insured [employer] [address] [place] [address] [phone] [id number] Jade Mg Self - patient is the insured Medical (General) History Medical History History ICD Code High blood pressure Measles Mumps Chicken pox CAD Surgical History Surgery Date(Month/Year) lazy eye correction PT refuses to answer or see AMY Hospitalization History Reason Date(Month/Year) PT refuses to answer or see AMY
--- OUTSIDE RECORDS SUMMARY | 2025-07-31 17:01 | XMS_ITS | Clinical Summary ---
Author Organization [facility] Address [address] [place] [id number] Phone Care Team Providers Care Boning Room Worker Name Role Phone Daljit Patel MD Primary Care Provider [phone] Merlene Liu MD Unavailable [phone] Diana Lopez DO Unavailable [phone] Terrence Michael MD Unavailable [phone] Alexsander Rahman MD Unavailable Daljit Patel MD Unavailable [phone] Allergies Active Allergy Reactions Criticality Noted Date Comments Amoxicillin-Pot Clavulanate Rash Low 11/04/2020 Possible allergy to augmentin. See er visit to [facility] [place] in media 11/04/20 Nitrofurantoin Hepatitis Medium 05/22/2018 Elevated liver function testing Nitrofurantoin Monohyd/M-Cryst Unknown 11/21/2020 Penicillin Unknown 12/31/2024 Simvastatin Myalgia 05/20/2022 Sulfamethoxazole-Trimeth oprim Hives,Itching,Swell ing,Unknown 05/21/2013 4- 5 years ago. 1-2 weeks after completion of bactrim. Medications MULTIVITAMIN ORAL Take 1 tablet by mouth daily. Active Lactobac no.41/Bifidobac t no.7 (PROBIOTIC-10 ORAL) Take 1 capsule by mouth daily. 05/21/20 13 Active cranberry fruit extract (CRANBERRY ORAL) Take 2 tablets by mouth daily. 05/21/20 13 Active valACYclovir (VALTREX) 1000 MG tablet PRN 01/10/20 19 Active calcium citrate-vitamin D3 315 mg- 250 unit per tablet Take 1 tablet by mouth daily. 90 tablet 3 03/28/20 20 Active estradioL (ESTRACE) 0.01 % (0.1 mg/gram) vaginal cream Place 0.5 g vaginally 2 (two) times a week. As needed 30 g 1 05/03/20 22 Active mupirocin (BACTROBAN) 2 % ointment Apply topically 2 (two) times a day. As needed 05/02/20 22 Active clindamycin (CLEOCIN T) 1 % lotion As needed 03/03/20 22 Active fluticasone propionate (FLONASE) 50 mcg/actuation nasal spray 2 sprays by Nasal route daily. 16 g 12 10/08/19 23 Active Additional Information Patient taking differently:2 spray NasalDaily as needed, Reported on 07/03/2025 levocetirizine (XYZAL) 5 MG tablet Take 5 mg by mouth daily as needed for allergies. Active CLINPRO 5000 1.1 % Pste as needed. 02/02/20 23 Active erythromycin (ROMYCIN) ophthalmic ointment Place 0.5 inches into the left eye nightly at bedtime as needed. 01/31/20 24 Active famotidine (PEPCID) 20 MG tablet Take 20 mg by mouth nightly at bedtime. 04/18/20 24 Active FLUoxetine (PROZAC) 10 MG capsule TAKE 1 CAPSULE TWICE A WEEK 24 capsule 3 04/08/20 25 Active DIOVAN 80 mg tabletIndicatio ns:Essential hypertension TAKE 1 TABLET DAILY 90 tablet 3 04/08/20 25 Active LORazepam (ATIVAN) 0.5 MG tabletIndicatio ns:Anxiety Take 1 tablet (0.5 mg total) by mouth 2 (two) times a day as needed for anxiety. 180 tablet 1 06/21/20 25 Active rosuvastatin (CRESTOR) 5 MG tabletIndicatio ns:Hyperlipidem ia TAKE 1 TABLET DAILY 90 tablet 3 07/22/20 25 Active rosuvastatin (CRESTOR) 5 MG tabletIndicatio ns:Hyperlipidem ia Take 1 tablet (5 mg total) by mouth daily. 90 tablet 3 05/11/20 24 025 Discontinued Active Problems Problem Noted Date Diagnosed Date Colicky RLQ abdominal pain 07/03/2025 Assessment & Plan (07/03/2025 12:22 PM EDT): She has had intermittent colicky migratory abdominal pain for over a month without associated diarrhea, constipation, nausea, vomiting, hematochezia, urinary symptoms. No red flag symptoms such as unintentional weight loss noted. Afebrile, hemodynamically stable. Benign abdominal exam in the office today. Has an upcoming colonoscopy scheduled in August 2025. Recently had lab work including a CMP, CBC, thyroid panel, A1c, ESR/CRP, and UA, all of which were negative. She does report that the majority of the time her symptoms are located along the right lower quadrant, no palpable abnormalities. Will obtain an ultrasound of the right lower quadrant to further assess, although I suspect will be benign. Advised symptomatic management and to follow-up with GI with a colonoscopy. Acute pain of left knee 07/03/2025 Assessment & Plan (07/03/2025 12:22 PM EDT): On exam there are no palpable deformities, no joint instability. Suspect a strain. Advised pain management with Tylenol/ibuprofen, compression bandage, ice, rest, and elevation. Advised patient that this should resolve spontaneously over time. Discussed obtaining a knee x-ray, patient would like to hold off at this time. 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 Patient comes in with a 10-day history of intermittent left calf pain. 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 Vaginal atrophy 06/21/2019 Fibrocystic breast changes of both breasts 04/26 Hypertensive disorder 09/14/2014 Overview (11/02/2014): Hypertensive disorder Anxiety 06/01/2013 Overview (01/15/2021): Overview: Anxiety Overview: Anxiety Encounters Date Type Department Care Team Description 07/21/2025 Refill [facility] Internal Medicine [address] [facility] [place] [address] Daljit Patel MD Medication Refill 07/12/2025 Orders Only [facility] Internal Medicine [address] [place] [address] ProviderBrooke MD 07/10/2025 Telephone [facility] Internal [facility] [address] [place] [address] Daljit Patel MD Change ultrasound order 07/03/2025 11:20 AM EDT Office Visit [facility] Internal [facility] [address] [place] [address] Renée Jacob PA-C Colialdairy RLQ abdominal pain (Primary Dx); Acute pain of left knee 06/28/2025 Telephone [facility] Internal [facility] [address] [place] [address] Daljit Patel MD Continued abdominal pain 06/21/2025 Refill [facility] Internal [facility] [address] [place] [address] Daljit Patel MD Medication Refill 06/20/2025 Telephone [facility] Internal Medicine [address] [place] [address] Hensley, Angel Medication Prior Authorization (DIOVAN 80mg) 06/11/2025 Telephone [facility] Internal [facility] [address] [facility] [place] [address] Anat Neely RN Medication Problem 05/31/2025 2:30 PM EDT Office Visit [facility] Internal Medicine [address] [place] [address] Daljit Patel MD Colon cancer screening (Primary Dx) 05/30/2025 3:08 PM EDT - 05/30/2025 11:59 PM EDT Hospital Encounter [facility] [address] [facility] [place] [address] Daljit Patel MD Discharge Disposition: Home or Self Care 05/24/2025 12:13 PM EDT - 05/24/2025 11:59 PM EDT Hospital Encounter [facility] [address] [facility] [place] [address] Daljit Patel MD Discharge Disposition: Home or Self Care 05/24/2025 11:00 AM EDT Office Visit [facility] Internal Medicine [address] [place] [address] Daljit Patel MD Need for prophylactic vaccination and inoculation against influenza (Primary Dx); Primary hypertension; Lower abdominal pain; Gastroesophageal reflux disease with esophagitis, unspecified whether hemorrhage; Impaired fasting glucose; Chronic bilateral low back pain without sciatica 05/24/2025 Telephone [facility] Internal [facility] [address] [place] [address] Daljit Patel MD Question on labs 05/23/2025 Orders Only [facility] Internal [address] [address] ProviderBrooke MD from Last 3 Months Immunizations Immunization Administration Dates Next Due COVID-19 (Pre-07/04) Pfizer Vaccine, Bivalent 12+ 01/31/2023,06/11/2022 COVID-19 (Pre-07/04) Pfizer Vaccine, mRNA, PF 06/27/2025,06/19/2021,11/25/2020,11/03 Influenza High-Dose Quadriva lent Preservative Free IM 06/15/2023,06/26/2022,07/06/2021,06/27 Influenza High-Dose Trivalen t Preservative Free IM 05/24/2025,06/27/2024,06/27/2019,07/27,06/29/2016 Influenza Quadrivalent Prese rvative Free IM 06/26/2022,07/27/2018 Pneumococcal conjugate PCV13 07/27/2018,06/25/20 16 Pneumococcal conjugate PCV21 09/10/2024 Pneumococcal polysaccharide PPSV23 06/19/2015 Tdap 11/21/2023,11/26/2013 Zoster unspecified formulation 11/08/2013 Family History Medical History Relation Comments Hypertension Brother Basal cell carcinoma Father Heart failure Father Hypertension Father Basal cell carcinoma Maternal Aunt Multiple sclerosis Maternal Aunt CV disease Mother Cancer Paternal Uncle Alexx's thyroiditis Sister 1 Hypertension Sister 1 Ovarian cancer Sister 1 Breast cancer Neg Hx Relation Status Comments Brother Alive Father (Age 94) Maternal Aunt Mother (Age 89) Paternal Uncle Sister 1 (Age 59) Sister 2 Alive gerd Social History Tobacco Use Types Packs/Day Years Used Date Smoking Tobacco: Never Smokeless Tobacco: Never Tobacco Cessation:Counseling Given: Not Answered Alcohol Use Standard Drinks/Week Comments Never 0 [...] on file Sexual Orientation Not on file Last Filed Vital Signs Vital Sign Reading Time Taken Comments Blood Pressure 132/82 07/03/2025 11:37 AM EDT Pulse 85 07/03/2025 11:37 AM EDT Temperature 36.3 C (97.3 F) 07/03/2025 11:37 AM EDT Respiratory Rate 20 07/03/2025 11:37 AM EDT Oxygen Saturation 98% 07/03/2025 11:37 AM EDT Inhaled Oxygen Concentration - - Weight 60.8 kg (134 lb) 07/03/2025 11:37 AM EDT Height 150.1 cm (4' 11.09 ) 07/03/2025 11:37 AM EDT Body Mass Index 26.98 07/03/2025 11:37 AM EDT Plan of Treatment Upcoming Encounters Date Type Department Care Team (Late st Contact Info) Description 08/09/2025 2:00 PM EST Office Visit [facility] [place] [facility] [address] [place] [address] Daljit Patel MD [address] [place] [address] Health Maintenance Due Date Last Done Comments OGUABERNADETTE 1995 FIT TEST 1995 FOBT 1995 SIGMOIDOSCOPY 1995 VIRTUAL COLONOSCOPY 1995 ZOSTER VACCINES (1 of 2) 2000 11/08/2013 COLONOSCOPY 05/21/2024 05/21/2019, 02/15/2008 COLORECTAL CANCER SCREENING 05/21/2024 RSV VACCINE (1 - 1-dose 75+ series) 2025 COVID-19 VACCINE (2024- season) 2025 06/27/2025, 06/27/2025, 12/14/2024, Additional history exists BLOOD PRESSURE 01/01/2026 07/03/2025 FOLLOW UP BONE DENSITY TESTING 05/03/2026 05/03/2024, 03/10/2023, 04/11/2019, Additional history exists DEPRESSION SCREENING 05/23/2026 05/23/2025 CREATININE LEVEL 05/24/2026 05/24/2025, , 05/02/2024, Additional history exists POTASSIUM LEVEL 05/24/2026 05/24/2025, 12/11, 05/02/2024, Additional history exists MAMMOGRAM 01/31/2027 01/31/2025, 07/14, 08/06/2024, Additional history exists LIPID PANEL 12/27/2029 12/27/2024, 04/13, 08/12/2023, Additional history exists Adult Td,Tdap Booster 11/20/2033 11/21/2023, 014 HEPATITIS C SCREENING Completed 06/19/2018, 017 OSTEOPOROSIS SCREENING INITIAL (ONE-TIME) Completed 05/03/2024, 03/10/2023, 04/11/2019, Additional history exists PNEUMOCOCCAL VACCINES (50+ years) Completed 09/10/2024, 07/27/2018, 06/25/2016, Additional history exists INFLUENZA VACCINE Completed 05/24/2025, , 06/15/2023, Additional history exists SMOKING STATUS SCREENING (Once After 26 Yrs) Completed 07/03/2025 HEPATITIS A VACCINES Aged Out No long er eligible based on patient's age to complete this topic HIB VACCINES Aged Out No longer eligi ble based on patient's age to complete this topic IPV VACCINES Aged Out No longer eligi ble based on patient's age to complete this topic MENINGOCOCCAL VACCINES (ACWY) Aged Out No longer eligible based on patient's age to complete this topic MENINGOCOCCAL VACCINES (B) Aged Out N o longer eligible based on patient's age to complete this topic Medical Devices Not on file Procedures Procedure Name Priority Date/Time Associated Diagnosis Comments OUTSIDE IMAGING Routine 07/12/2025 3:02 PM EDT US KIDNEYS Routine 07/09/2025 4:24 PM EDT Right flank pain Lower abdominal pain US ABDOMEN LIMITED Routine 07/09/2025 4: 24 PM EDT Lower abdominal pain US ABDOMEN LIMITED Routine 07/03/2025 12:00 PM EDT Colicky RLQ abdominal pain URINALYSIS WITH REFLEX TO URINE CULTURE Routine 05/30/2025 1:50 PM EDT Dysuria COMPREHENSIVE METABOLIC PANEL (CMP) Routine 05/24/2025 12:22 PM EDT Lower abdominal pain Primary hypertension Impaired fasting glucose CBC AND DIFFERENTIAL Routine 05/24/2025 12:22 PM EDT Lower abdominal pain Primary hypertension TSH WITH REFLEX Routine 05/24/2025 12:22 PM EDT Primary hypertension HEMOGLOBIN A1C Routine 05/24/2025 12:22 PM EDT Primary hypertension Impaired fasting glucose SEDIMENTATION RATE (ESR) Routine 05/24/2025 12:22 PM EDT Lower abdominal pain C-REACTIVE PROTEIN (CRP) Routine 05/24/2025 12:22 PM EDT Lower abdominal pain LIPASE Routine 05/24/2025 12:22 PM EDT Lower abdominal pain URINE SEDIMENT Routine 05/24/2025 10:30 AM EDT URINALYSIS WITH REFLEX TO URINE CULTURE Routine 05/24/2025 10:30 AM EDT Lower abdominal pain URINE CULTURE Routine 05/24/2025 10:30 AM EDT HM MAMMOGRAPHY Routine 01/31/2025 1:27 PM EDT LIPID PANEL Routine 12/27/2024 10:32 AM EDT Pure hypercholesterolemia BD DXA SCREENING Routine 05/03/2024 12:46 PM EDT Postmenopausal estrogen deficiency HM COLONOSCOPY FOR RESULT ENTRY ONLY Routine 05/21/2019 OUTSIDE HEPATITIS C VIRUS SCREENING Routine 05/13/2017 from Last 3 Months or Most Recently Relevant to Health Maintenance Results * Outside Imaging Report Only (07/12/2025 3:02 PM EDT) Historical Provider IMFarhat XR CHEST Final Res ult * Urinalysis w/reflex Urine Culture (05/30/2025 1:50 PM EDT) Only the most recent of2 resultswithin the time period is included. COLOR Yellow Yellow [facility] CLARITY Clear [facility] GLUCOSE Negative Negative [facility] BILI Negative Negative [facility] KETONES Negative Negative [facility] SPECIFIC GRAVITY <1.005 1.005 - 1.030 [facility] BLOOD Negative Negative [facility] PH 6.0 5.0 - 8.0 [facility] Protein-UA Negative Negative [facility] NITRITE Negative Negative [facility] Leukocyte esterase, ur Negative Negative [facility] Urine (Urine) 05/30/2025 1:5 0 PM EDT 05/30/2025 3:08 PM EDT Renée Jacob PA-C LAB URINE ORDERABLES Final R esult [facility] [address] [place] [address] * (ABNORMAL) Comprehensive metabolic panel (05/24/2025 12:22 PM EDT) SODIUM 137 133 - 146 mmol/L [facility] POTASSIUM 4.4 3.3 - 5.1 mmol/L [facility] CHLORIDE 103 96 - 108 mmol/L [facility] CO2 23 21 - 35 mmol/L [facility] BUN 15 6 - 19 mg/dL [facility] CREATININE 0.70 0.5 - 1.5 mg/dL [facility] GLUCOSE 100(H) 70 - 99 mg/dL [facility] ALBUMIN 4.6 3.9 - 4.8 g/dL [facility] TOTAL PROTEIN 7.7 6.5 - 8.0 g/dL [facility] CALCIUM 9.8 8.4 - 10.3 mg/dL [facility] ALKALINE PHOSPHATASE 70 39 - 117 U/L [facility] TOTAL BILIRUBIN 0.4 0.0 - 1.2 mg/dL [facility] AST 25 0 - 37 U/L [facility] ALT 18 0 - 40 U/L [facility] GLOBULIN 3.1 1 - 4.8 g/dL [facility] EGFR 91 >59 mL/min/1.7 3m2 [facility] Comment:Estimated glomerular filtration rate calculated using the CKD-EPI refit equation. ANION GAP 15 10 - 20 mmol/L [facility] Blood 05/24/2025 12:2 2 PM EDT 05/24/2025 12:23 PM EDT Daljit Patel MD LAB BLOOD BKR ORDERABLES Shanna l Result Performing Organization Address City/[facility]/ZIP Co de Phone Number [address] [address] * TSH with reflex (05/24/2025 12:22 PM EDT) TSH 2.36 0.27 - 4.20 uIU/mL [facility] Blood 05/24/2025 12:2 2 PM EDT 05/24/2025 12:23 PM EDT Daljit Patel MD LAB BLOOD BKR ORDERABLES Shanna l Result [facility] [address] [place] [address] * Sedimentation rate (ESR) (05/24/2025 12:22 PM EDT) ESR 11 0 - 30 mm/h [facility] Blood 05/24/2025 12:2 2 PM EDT 05/24/2025 12:23 PM EDT us Daljit Patel MD LAB BLOOD BKR ORDERABLES Shanna l Result [address] [address] * (ABNORMAL) CBC and differential (05/24/2025 12:22 PM EDT) WBC 5.22 4.00 - 11.00 K/uL [facility] RBC 4.88 4.00 - 5.20 M/uL [facility] HGB 13.8 12.0 - 16.0 g/dL [facility] HCT 43.6 36.0 - 46.0 % [facility] PLT 231 150 - 450 K/uL [facility] MCV 89.3 80.0 - 100.0 fL [facility] MCH 28.3 27.0 - 31.0 pg [facility] MCHC 31.7(L) 32.0 - 36.0 g/dL [facility] RDW 12.5 11.5 - 14.5 % [facility] MPV 9.1 8.4 - 12.0 fL [facility] NRBC 0.00 0.00 /100 WBCs [facility] ABSOLUTE NRBC 0.00 0.00 K/uL [facility] DIFF METHOD Auto [facility] NEUTS 67.5 48.0 - 76.0 % [facility] LYMPHS 24.5 18.0 - 41.0 % [facility] MONOS 6.3 4.0 - 11.0 % [facility] EOS 1.1 0.0 - 5.0 % [facility] BASOS 0.4 0.0 - 1.5 % [facility] Granulocytes, immature (%) 0.2 0.0 - 0.9 % [facility] ABSOLUTE NEUTS 3.52 1.92 - 7.60 K/uL [facility] ABSOLUTE LYMPHS 1.28 0.72 - 4.10 K/uL [facility] ABSOLUTE MONOS 0.33 0.16 - 1.10 K/uL [facility] ABSOLUTE EOS 0.06 0.00 - 0.50 K/uL [facility] ABSOLUTE BASOS 0.02 0.00 - 0.15 K/uL [facility] Granulocytes, immature 0.01 0.00 - 0.09 K/uL [facility] Blood 05/24/2025 12:2 2 PM EDT 05/24/2025 12:23 PM EDT Daljit Ptael MD LAB BLOOD BKR ORDERABLES Shanna l Result Performing Organization Address [facility] Co de Phone Number [address] [address] * C-Reactive Protein (05/24/2025 12:22 PM EDT) C REACTIVE PROTEIN <3.0 0.0 - 4.0 mg/L [facility] Blood 05/24/2025 12:2 2 PM EDT 05/24/2025 12:23 PM EDT Daljit Patel MD LAB BLOOD BKR ORDERABLES Shanna l Result [address] [address] * Lipase (05/24/2025 12:22 PM EDT) LIPASE 28 16 - 63 U/L [facility] Blood 05/24/2025 12:2 2 PM EDT 05/24/2025 12:23 PM EDT Daljit Patel MD LAB BLOOD BKR ORDERABLES Shanna l Result Performing Organization Address City/State/[facility] Co de Phone Number [address] [address] * Hemoglobin A1c (05/24/2025 12:22 PM EDT) HEMOGLOBIN A1C 5.7 4.3 - 5.8 % [facility] Blood 05/24/2025 12:2 2 PM EDT 05/24/2025 12:23 PM EDT us Daljit Patel MD LAB BLOOD BKR ORDERABLES Shanna l Result Performing Organization Address [facility] Co de Phone Number [address] [address] * (ABNORMAL) Urine Culture (05/24/2025 10:30 AM EDT) Special Requests None Reflexed from [id number] 05/24/2025 4:02 PM EDT [facility] Urine Culture >100,000 colony forming units per mL MIXED MICHELLE (3 OR MORE COLONY TYPES) Culture indicates contamination . Please resubmit if necessary.(A) 05/26/2025 11:25 AM EDT [facility] Urine 05/24/2025 10:3 0 AM EDT 05/24/2025 12:20 PM EDT us Daljit Patel MD LAB MICROBIOLOGY CULTURE ORDE RABLES Final Result Performing Organization Address [facility] Co de Phone Number [address] [address] * (ABNORMAL) Urine sediment (05/24/2025 10:30 AM EDT) WBC 21-49(A) NONE SEEN /hpf [facility] RBC 0-2(A) NONE SEEN /hpf [facility] URINE EPITHELIAL 5-10(A) NONE SEEN [facility] MUCUS 2+(A) NONE SEEN /hpf [facility] BACTERIA Trace(A) NONE SEEN /hpf [facility] CAST 0-2 [facility] Comment:HYALINE CAST 05/24/2025 10:3 0 AM EDT 05/24/2025 12:20 PM EDT Daljit Patel MD LAB URINE ORDERABLES Final Re sult Performing Organization Address [facility] Co de Phone Number [address] [address] * MAMMOGRAPHY FOR RESULT ENTRY ONLY (01/31/2025 1:27 PM EDT) us Historical Provider HEALTH MAINTENANCE Final Result * (ABNORMAL) Lipid panel (12/27/2024 10:32 AM EDT) HDL 73 mg/dL [facility] Comment: Interpretation <40 mg/dL: Low HDL cholesterol (major risk factor for CHD) Greater than or equal to 60 mg/dL: High HDL cholesterol ( negative risk factor for CHD) HDL - cholesterol is affected by a number of factors, e.g. smoking, excerise, hormones, sex and age. CHOLESTEROL 179 0 - 240 mg/dL [facility] TRIGLYCERIDES 59 30 - 160 mg/dL [facility] LDL 94 50 - 129 mg/dL [facility] Comment: LDL levels in terms of risk for coronary heart disease: <100 mg/dL: Optimal 100-129 mg/dL: Near or above optimal 130-159 mg/dL: Borderline high 160-189 mg/dL: High >190 mg/dL: Very High CARDIAC RISK RATIO 2.5(L) 3.3 - 4.4 [facility] Blood 12/27/2024 10:3 2 AM EDT 12/27/2024 10:40 AM EDT Daljit Patel MD LAB BLOOD BKR ORDERABLES Shanna l Result Performing Organization Address [facility]/ZIP Co de Phone Number [address] [address] * COLONOSCOPY FOR RESULT ENTRY ONLY (05/21/2019) Colonoscopy 5 yr recall Historical Provider HEALTH MAINTENANCE Final Result * OUTSIDE BONE DENSITY SCREENING (04/11/2019) BONE DENSITY SCREENING - EXTERNAL osteopenia Historical Provider HEALTH MAINTENANCE Final Result * Outside Hepatitis C Virus Screening (05/13/2017) Hepatitis C Screening - External Neg Historical Provider LAB BLOOD ORDERABLES Shanna l Result from Last 3 Months or Most Recently Relevant to Health Maintenance Insurance [employer] SU[employer]LEMENT MEDICARE PART A & B [employer] MEDEX SUPPLEMENT MEDICARE PART A & B [employer] SUPPLEMENT MEDICARE PART A & B [employer]her MEDEX SUPPLEMENT MEDICARE PART A & B [employer]OSS MEDEX SUPPLEMENT MEDICARE PART A & B Masher MEDEX SUPPLEMENT MEDICARE PART A & B [employer] MEDEX SUPPLEMENT MEDICARE PART A & B [employer] MEDEX SUPPLEMENT MEDICARE PART A & [place] [address] [place] [address] CROSS MEDEX SUPPLEMENT MEDICARE PART A & B Care Teams Boning Room Worker Relationship Specialty Start Date End Date Daljit Patel MD [address] [place] [id number] [email or web address] - General Internal Medicine 03/28/20 Merlene Liu MD [address] [place] [phone] [email or web address] Endocrinology 07/10/20 Diana Lopez DO [address] [place] [id number] 07/10/20 Terrence Michael MD [address] [place] [phone] Internal Medicine 07/10/20 Alexsander Rahman MD [address] [place] [phone] [email or web address] Surgical Oncology 07/10/20 Daljit Patel MD [address] [place] [address] [email or web address] Insurance Assigned Provider 12/17/23 Additional Source Comments The information contained in this document represents components of the legal health record. It is not the complete legal health record.[facility]
--- OUTSIDE RECORDS SUMMARY | 2025-07-31 17:02 | XMS_ITS | Encounter Summary ---
Author Organization [facility] Address [address] [place] [address] [place] [address] Phone Care Team Providers Care Sushi Chef Name Role Phone Daljit Patel MD Primary Care Provider [phone] Merlene Liu MD Unavailable [phone] Diana Lopez DO Unavailable [phone] Terrence Michael MD Unavailable [phone] Alexsander Rahman MD Unavailable Daljit Patel MD Unavailable [phone] Encounter Details Date Type Department Care Team (Late st Contact Info) Description 05/21/2024 Procedure Pass [facility] Main [place] [address] [place] [address] Social History Tobacco Use Types Packs/Day Years [...] on file documented as of this encounter Plan of Treatment Upcoming Encounters Date Type Department Care Team (Late st Contact Info) Description 08/09/2025 2:00 PM EST Office Visit [facility] Internal Medicine [address] [place] [address] Daljit Patel MD [address] [place] [address] [email or web address] documented as of this encounter Visit Diagnoses Not on filedocumented in this encounter Additional Health Concerns Assessment Noted Time PHQ-2 Depression Total Score: 0 05/02/20 24 8:42 AM EDT documented as of this encounter Care Teams Sushi Chef Relationship Specialty Start Date End Date Daljit Patel MD [address] [place] [address] PCP - General Internal Medicine 03/28/20 Merlene Liu MD [address] [place] [address] [email or web address] Endocrinology 07/10/20 Diana Lopez DO [address] [place] [address] 07/10/20 Terrence Michael MD [address] [place] [address] Internal Medicine 07/10/20 Alexsander Rahman MD [address] [place] [address] Surgical Oncology 07/10/20 Daljit Patel MD [address] [place] [address] Insurance Assigned Provider 12/17/23 documented as of this encounter Additional Source Comments The information contained in this document represents components of the legal health record. It is not the complete legal health record.[facility]
--- OUTSIDE RECORDS SUMMARY | 2025-07-31 17:02 | XMS_ITS | Encounter Summary ---
Author Organization [facility] Address [address] [place] [address] Phone Care Team Providers Care Career Development Coordinator Name Role Phone Diana Lopez DO Primary Care Provider [phone] Daljit Patel MD Unavailable [phone] Theresa Dueñas NP Unavailable [phone] Daljit Patel MD Primary Care Provider [phone] Merlene Liu MD Unavailable [phone] Diana Lopez DO Unavailable Terrence Michael MD Unavailable Alexsander Rahman MD Unavailable Daljit Patel MD Unavailable [phone] Encounter Details Date Type Department Care Team (Late st Contact Info) Description 07/06/2018 Procedure Pass [facility] [address] [place] [address] Social History Tobacco Use Types Packs/Day Years Used Date Smoking Tobacco: Never Smokeless Tobacco: Never Comments Unknown Sex and Gender Information Value Date Recorded Sex Assigned at Not on file Legal Sex Female 6:03 PM EST Gender Identity Not on file Sexual Orientation Not on file documented as of this encounter Plan of Treatment Upcoming Encounters Date Type Department Care Team (Late st Contact Info) Description 08/09/2025 2:00 PM EST Office Visit [facility] Internal Medicine [address] [place] [address] Daljit Patel MD [address] [place], [place] [phone] documented as of this encounter Visit Diagnoses Not on filedocumented in this encounter Additional Health Concerns Infection Onset Date Last Indicated Resolved Time CoV-Risk 04/08/2021 04/11/2021 04/20/2021 1:23 AM EDT CoV-Risk 04/21/2021 04/25/2021 05/01/2021 1:44 AM EDT documented as of this encounter Care Teams Career Development Coordinator Relationship Specialty Start Date End Date Diana Lopez DO PCP - General 03/09/16 03/27/20 Daljit Patel MD [address] [place] [address] PCP - General Internal Medicine 03/28/20 Daljit Patel MD [address] [place] [address] Historical LMR Provider 06/29/17 05/01/20 Theresa Dueñas, POLO COACH [address] [place] [address] Historical LMR Provider 06/29/17 05/01/20 Merlene Liu MD [address] [place] [address] [email or web address] Endocrinology 07/10/20 Diana Lopez DO 07/10/20 Terrence Michael MD [address] [place] [address] Internal Medicine 07/10/20 Alexsander Rahman MD [address] [place] [address] Surgical Oncology 07/10/20 Daljit Patel MD [address] [place] [address] Insurance Assigned Provider 12/17/23 documented as of this encounter Additional Source Comments The information contained in this document represents components of the legal health record. It is not the complete legal health record.[facility]
--- OUTSIDE RECORDS SUMMARY | 2025-07-31 17:02 | XMS_ITS | Patient Health Record ---
Author Organization [facility] Address [address] [place] [address] Care Team Providers Care Supervisor Refractory Products Name Role Phone Daljit Patel MD Primary Care Provider Aldo Jauregui Unavailable [phone] Allergies Allergen (clinical drug ingredient) Drug/Non Drug Allergy documented on EMR Reaction Allergy Type Onset Date Status amoxicillin / clavulanate Augmentin Unknown Drug Allergy Active sulfamethoxazole / trimethoprim Bactrim DS Unknown Drug Allergy Active nitrofurantoin, macrocrystals / nitrofurantoin, monohydrate Macrobid Unknown Drug Allergy Active Penicillin Unknown Drug Allergy Active Reason For Referral No Information Medications Medication SIG (Take, Route, Frequency, Duration) Notes Start Date End Date Status Ativan prn Active FLUoxetine HCl 10 MG Capsule 1 capsule Orally Every Tuesday and Tuesday Active Diovan 80 MG Tablet 1 tablet Orally Once a day Active Crestor 5 MG Tablet 1 tablet Orally Once a day; Duration: 30 day(s) Active Immunizations Vaccine Route Administration Date Status Comme nts Influenza Unknown 06/29/2018 Administered Social History Social History Additional Details Category Social Info Options Details Miscellaneous: Marital status: single Occupation: retired Section Notes: Nonsmoker; no sig. alcohol Nonsmoker; no sig. alcohol Nonsmoker; no sig. alcohol Problems Problem Type SNOMED Code ICD Code Onset Dates Problem Status W/U Status Risk Notes Problem Screening for malignant neoplasm of colon (677973868) Encounter for screening for malignant neoplasm of colon (Z12.11) Active confirmed Problem History of adenomatous polyp of colon (569858643) History of adenomatous polyp of colon (Z86.010) Active confirmed Problem Pre-procedure evaluation check (968231772) Pre-procedural examination (Z01.818) Active confirmed Problem History of adrenal adenoma (640558695504032 ) History of adrenal adenoma (Z86.018) Active confirmed Vital Signs Blood pressure diastolic 111 mm Hg 12/18/2024 Height 60 in 12/18/2024 Blood pressure systolic 111 mm Hg 12/18/2024 Weight 143 lbs 12/18/2024 BMI 27.92 kg/m2 12/18/2024 Encounters Encounter Location Date Provider Diagnosis [facility] [address] [place] [address] 12/18/2024 Aldo Alejo Encounter for screening for malignant neoplasm of colon Z12.11 ; Pre-procedural examination Z01.818 and History of adenomatous polyp of colon Z86.010 Assessments Encounter Date Diagnosis (ICD Code) Assessment Notes Treatment Notes Treatment Clinical Notes Section Notes 12/18/2024 Encounter for screening for malignant neoplasm of colon (ICD-10 - Z12.11) Think about the colonoscopy and discuss it with your PCP. If you want to have the colonoscopy then call my office. If you are not going to have the colonoscopy then obtain a Cologuard test through your PCP's office. Overall, Chiqui appears quite well. Given her age, good clinical appearance, history of a tubular adenoma in the past, and her last colonoscopy being over 5 years ago, I did recommend a follow-up colonoscopy for further screening purposes. We did review the rationale for this in regard to colon cancer prevention. We did review that this will be done with the anesthesiologist for maximal comfort during the procedure. We did review potential risks of the procedure, including that of bleeding and perforation. However I did advise her that the benefit of removal of tubular adenomas in regard to prevention of colon cancer would outweigh any theoretical risk of the procedure. Nonetheless, at this time, Chiqui would like to hold off on the colonoscopy and think about things. I did advise her to review this with you as well. I did advise her that if she is not going to do the colonoscopy she should at least try to obtain a Cologuard test through your office and then notify me of the results. We did review that obviously if the Cologuard test is positive we would then definitely want to do a colonoscopy on that basis as well. At this point I will await to hear from her. Thank you again for allowing me to have participated in Chiqui's care. Please do not hesitate to contact me if I can be of any further assistance in the future. 12/18/2024 Pre-procedural examination (ICD-10 - Z01.818) Overall, Chiqui appears quite well. Given her age, good clinical appearance, history of a tubular adenoma in the past, and her last colonoscopy being over 5 years ago, I did recommend a follow-up colonoscopy for further screening purposes. We did review the rationale for this in regard to colon cancer prevention. We did review that this will be done with the anesthesiologist for maximal comfort during the procedure. We did review potential risks of the procedure, including that of bleeding and perforation. However I did advise her that the benefit of removal of tubular adenomas in regard to prevention of colon cancer would outweigh any theoretical risk of the procedure. Nonetheless, at this time, Chiqui would like to hold off on the colonoscopy and think about things. I did advise her to review this with you as well. I did advise her that if she is not going to do the colonoscopy she should at least try to obtain a Cologuard test through your office and then notify me of the results. We did review that obviously if the Cologuard test is positive we would then definitely want to do a colonoscopy on that basis as well. At this point I will await to hear from her. Thank you again for allowing me to have participated in Suj[facility]dem[facility]. Please do not hesitate to contact me if I can be of any further assistance in the future. 12/18/2024 History of adenomatous polyp of colon (ICD-10 - Z86.010) Overall, Chiqui appears quite well. Given her age, good clinical appearance, history of a tubular adenoma in the past, and her last colonoscopy being over 5 years ago, I did recommend a follow-up colonoscopy for further screening purposes. We did review the rationale for this in regard to colon cancer prevention. We did review that this will be done with the anesthesiologist for maximal comfort during the procedure. We did review potential risks of the procedure, including that of bleeding and perforation. However I did advise her that the benefit of removal of tubular adenomas in regard to prevention of colon cancer would outweigh any theoretical risk of the procedure. Nonetheless, at this time, Chiqui would like to hold off on the colonoscopy and think about things. I did advise her to review this with you as well. I did advise her that if she is not going to do the colonoscopy she should at least try to obtain a Cologuard test through your office and then notify me of the results. We did review that obviously if the Cologuard test is positive we would then definitely want to do a colonoscopy on that basis as well. At this point I will await to hear from her. Thank you again for allowing me to have participated in Chiqui's care. Please do not hesitate to contact me if I can be of any further assistance in the future. Plan Of Treatment Future Test Test Name Order Date COLONOSCOPY 04/26/2013 COLONOSCOPY 12/13/2018 Next Appt Details Provider Name:Aldo Alejo , 08/21/2025 07:30:00 AM, [address] [place] [address], [id number], Insurance Providers Payer Name Payer Address Payer Phone Subscriber Number Group Number Insured Name Patient Relationship to Insured Coverage Start Date Coverage End Date MEDICARE OF [place] [address] [facility] [place] [address] [phone] [id number] SHAGGYEDOUARDE Self - patient is the insured [employer] ATT[employer] CLAIMS [address] [place] [address] [id number] CHIQUI COON Self - patient is the insured Medical (General) History Medical History History ICD Code Colonosocpy 6-5-2008-1 tubul ar adenoma removed; neg. colonoscopy in 07/2013 except for diverticulosis and internal hemorrhoids Hyperlipidemia Hypertension Denies ME,DM,CVA,Lung disease,renal dise ase Depression/anxiety Negative colonoscopy in 05/2019 Surgical History Surgery Date(Month/Year) BSO for endometriosis done laparoscopica lly in [place] [facility] as a child
--- OUTSIDE RECORDS SUMMARY | 2025-07-31 17:02 | XMS_ITS | Encounter Summary ---
Author Organization [facility] Address [address] [place] [address] [place] [address] Phone Care Team Providers Care Coding Support Specialist Name Role Phone Daljit Patel MD Primary Care Provider [phone] Merlene Liu MD Unavailable [phone] Diana Lopez DO Unavailable [phone] Terrence Michael MD Unavailable Alexsander Rahman MD Unavailable [phone] Daljit Patel MD Unavailable [phone] Encounter Details Date Type Department Care Team (Latest Contact Info) Description 04/10/2021 Transcribe Orders Virtual Department [address] [place] [address] Bib Bhakta MD, MPH [address] [place] [address] [place] [id number] [email or web address] Stuffy and runny nose (Primary Dx) Social History Tobacco Use Types Packs/Day Years [...] Answer Date Recorded Are you interested in help w ith more adult education (for example, completing high school, GED, job training, learning the Banglades[place] language, technical skills, or developing parenting skills)? No 01/23/2021 Food Answer Date Recorded Within the past [...] basis, and looking for work? No 01/23/2021 Comments No Sex and Gender Information Value Date Recorded Sex Assigned at Not on file Legal Sex Female 6:03 PM EST Gender Identity Not on file Sexual Orientation Not on file documented as of this encounter Plan of Treatment Upcoming Encounters Date Type Department Care Team (Late st Contact Info) Description 08/09/2025 2:00 PM EST Office Visit [facility] Internal Medicine [address] [place] [address] Daljit Patel MD [address] [place] [address] [email or web address] documented as of this encounter Visit Diagnoses Diagnosis Stuffy and runny nose- Primary Other diseases of nasal cavity and sinuses documented in this encounter Additional Health Concerns Infection Onset Date Last Indicated Resolved Time CoV-Risk 04/08/2021 04/11/2021 04/20/2021 1:23 AM EDT CoV-Risk 04/21/2021 04/25/2021 05/01/2021 1:44 AM EDT Assessment Noted Time PHQ-2 Depression Total Score: 0 07/11/20 18 2:55 PM EDT documented as of this encounter Care Teams Coding Support Specialist Relationship Specialty Start Date End Date Daljit Patel MD [address] [place] [address] PCP - General Internal Medicine 03/28/20 Merlene Liu MD [address] [place] [address] [email or web address] Endocrinology 07/10/20 Diana Lopez DO [address] [place] [address] 07/10/20 Terrence Michael MD [address] [place] [address] Internal Medicine 07/10/20 Alexsander Rahman MD [address] [place] [address] Surgical Oncology 07/10/20 Daljit Patel MD [address] [place] [address] Insurance Assigned Provider 12/17/23 documented as of this encounter Additional Source Comments The information contained in this document represents components of the legal health record. It is not the complete legal health record.[facility]
--- OUTSIDE RECORDS SUMMARY | 2025-07-31 17:02 | XMS_ITS | Encounter Summary ---
Author Organization [facility] Address [address] [place] [address] Phone Care Team Providers Care Spray Gun Operator Name Role Phone Diana Lopez DO Primary Care Provider [phone] Daljit Patel MD Unavailable Theresa Dueñas NP Unavailable [phone] Daljit Patel MD Primary Care Provider Merlene Liu MD Unavailable [phone] Diana Lopez DO Unavailable [phone] Terrence Michael MD Unavailable Alexsander Rahman MD Unavailable [phone] Daljit Patel MD Unavailable Encounter Details Date Type Department Care Team (Late st Contact Info) Description 07/06/2018 Procedure Pass [facility] [address] [place] [address] Social History Tobacco Use Types Packs/Day Years [...] Office Visit [facility] Internal Medicine [address] [place] [address] Daljit Patel MD [address] [place], [place] [phone] documented as of this encounter Visit Diagnoses Not on filedocumented in this encounter Additional Health Concerns Infection Onset Date Last Indicated Resolved Time CoV-Risk 04/08/2021 04/11/2021 04/20/2021 1:23 AM EDT CoV-Risk 04/21/2021 04/25/2021 05/01/2021 1:44 AM EDT documented as of this encounter Care Teams Spray Gun Operator Relationship Specialty Start Date End Date Diana Lopez DO PCP - General 03/09/16 03/27/20 Daljit Patel MD [address] [place] [address] PCP - General Internal Medicine 03/28/20 Daljit Patel MD [address] [place] [address] Historical LMR Provider 06/29/17 05/01/20 Theresa Dueñas, TREATING INSPECTOR [address] [place] [address] Historical LMR Provider 06/29/17 05/01/20 Merlene Liu MD [address] [place] [address] [email or web address] Endocrinology 07/10/20 Diana Lopez DO 07/10/20 Terrence Michael MD [address] [place] [address] Internal Medicine 07/10/20 Alexsander Rahman MD [address] [place] [address] [email or web address] Surgical Oncology 07/10/20 Daljit Patel MD [address] [place] [address] Insurance Assigned Provider 12/17/23 documented as of this encounter Additional Source Comments The information contained in this document represents components of the legal health record. It is not the complete legal health record.[facility]
--- OUTSIDE RECORDS SUMMARY | 2025-07-31 17:02 | XMS_ITS | Encounter Summary ---
Author Organization [facility] Address [address] [place] [address] [address] [place] [address] Phone Care Team Providers Care Heel Coverer Name Role Phone Daljit Patel MD Primary Care Provider [phone] Merlene Liu MD Unavailable [phone] Diana Lopez DO Unavailable [phone] Terrence Michael MD Unavailable [phone] Alexsander Rahman MD Unavailable [phone] Daljit Patel MD Unavailable [phone] Encounter Details Date Type Department Care Team (Latest Contact Info) Description 04/09/2021 Transcribe Orders Virtual Department [address] [place] [address] Bib Bhakta MD, MPH [address] [place] [address] [place] [address] [email or web address] Runny nose (Primary Dx) Social History Tobacco Use [...] high school, GED, job training, learning the [place] language, technical skills, or developing parenting skills)? [...] Description 08/09/2025 2:00 PM EST Office Visit [facility] Internal Medicine [address] [place] [address] Daljit Patel MD [address] [place] [address] [email or web address] documented as of this encounter Visit Diagnoses Diagnosis Runny nose- Primary Other diseases of nasal cavity and sinuses documented in this encounter Additional Health Concerns Infection Onset Date Last Indicated Resolved Time CoV-Risk 04/08/2021 04/11/2021 04/20/2021 1:23 AM EDT CoV-Risk 04/21/2021 04/25/2021 05/01/2021 1:44 AM EDT Assessment Noted Time PHQ-2 Depression Total Score: 0 07/11/20 2:55 PM EDT documented as of this encounter Care Teams Heel Coverer Relationship Specialty Start Date End Date Daljit Patel MD [address] [place] [address] PCP - General Internal Medicine 03/28/20 Merlene Liu MD [address] [place] [address] [email or web address] Endocrinology 07/10/20 Diana Lopez DO [address] [place] [address] 07/10/20 Terrence Michael MD [address] [place] [address] Internal Medicine 07/10/20 Alexsander Rahman MD [address] [place] [address] Surgical Oncology 07/10/20 Daljit Patel MD [address] [place] [address] Insurance Assigned Provider 12/17/23 documented as of this encounter Additional Source Comments The information contained in this document represents components of the legal health record. It is not the complete legal health record.[facility]
--- OUTSIDE RECORDS SUMMARY | 2025-07-31 17:02 | XMS_ITS | Encounter Summary ---
Author Organization [facility] Address [address] [place] [address] Phone Care Team Providers Care Melt Supervisor Name Role Phone Diana Lopez DO Primary Care Provider [phone] Daljit Patel MD Unavailable Theresa Dueñas NP Unavailable [phone] Daljit Patel MD Primary Care Provider Merlene Liu MD Unavailable [phone] Diana Lopez DO Unavailable Terrence Michael MD Unavailable Alexsander Rahman MD Unavailable [phone] Daljit Patel MD Unavailable Reason for Referral * Physical Therapy (Routine) - Closed Specialty Diagnoses / Procedures Referred By Tea t Referred To Contact Physical Therapy Diagnoses Encounter for rehabilitation System, Provider Not In, PhD [id number] [place] [address] Phone: tel: Referral ID Status Reason Start Date Expiration Date Visits Re quested Visits Authorized [id number] Closed 01/23/2018 09/11/2018 99 [phone] Encounter Details Date Type Department Care Team (Latest Contact Info) Description 01/23/2018 Transcribe Orders [facility] Rehabilitation Services [address] [place] [address] Terrence Michael MD [address] [place] [phone] Encounter for rehabilitation (Primary Dx) Social History Tobacco Use Types Packs/Day Years Used Date Smoking Tobacco: Never Comments Unknown Sex and Gender Information Value Date Recorded Sex Assigned at Not on file Legal Sex Female 6:03 PM EST Gender Identity Not on file Sexual Orientation Not on file documented as of this encounter Plan of Treatment Upcoming Encounters Date Type Department Care Team (Late st Contact Info) Description 08/09/2025 2:00 PM EST Office Visit [facility] Internal Medicine [address] [place] [address] Daljit Paetl MD [address] [place] [address] [email or web address] Scheduled Referrals Name Type Priority Associated Diagnoses Orde r Schedule Ambulatory referral to [facility] Physical Therapy Outpatient Referral Routine Encounter for rehabilitation Ordered: 01/23/2018 documented as of this encounter Visit Diagnoses Diagnosis Encounter for rehabilitation- Primary documented in this encounter Additional Health Concerns Infection Onset Date Last Indicated Resolved Time CoV-Risk 04/08/2021 04/11/2021 04/20/2021 1:23 AM EDT CoV-Risk 04/21/2021 04/25/2021 05/01/2021 1:44 AM EDT documented as of this encounter Care Teams Melt Supervisor Relationship Specialty Start Date End Date Diana Lopez DO PCP - General 03/09/16 03/27/20 Daljit Patel MD [address] [place] [address] PCP - General Internal Medicine 03/28/20 Daljit Patel MD [address] [place] [address] Historical LMR Provider 06/29/17 05/01/20 Theresa Dueñas NP [address] [place] [phone] Historical LMR Provider 06/29/17 05/01/20 Merlene Liu MD [address] [place] [phone] [email or web address] Endocrinology 07/10/20 Diana Lopez DO 07/10/20 Terrence Michael MD [address] [place] [address] Internal Medicine 07/10/20 Alexsander Rahman MD [address] [place] [address] Surgical Oncology 07/10/20 Daljit Patel MD [address] [place] [address] Insurance Assigned Provider 12/17/23 documented as of this encounter Additional Source Comments The information contained in this document represents components of the legal health record. It is not the complete legal health record.[facility]
--- OUTSIDE RECORDS SUMMARY | 2025-07-31 17:02 | XMS_ITS | Encounter Summary ---
Author Organization [facility] Address [address] [place] [address] [address] [place] [address] Phone Care Team Providers Care Public Health Educator Name Role Phone Daljit Patel MD Primary Care Provider Merlene Liu MD Unavailable [phone] Diana Lopez DO Unavailable [phone] Terrence Michael MD Unavailable Alexsander Rahman MD Unavailable Daljit Patel MD Unavailable [phone] Encounter Details Date Type Department Care Team (Latest Contact Info) Description 04/21/2021 Transcribe Orders Virtual Department [address] [place] [address] Bib Bhakta MD, MPH [address] [place] [address] [place] [address] [email or web address] Stuffy and runny nose (Primary Dx) Social [...] high school, GED, job training, learning the [place] language, technical skills, or developing parenting skills)? [...] Description 08/09/2025 2:00 PM EST Office Visit [facility] Internal Medicine [address] [place] [address] Daljit Patel MD [address] [place] [address] [email or web address] documented as of this encounter Visit Diagnoses Diagnosis Stuffy and runny nose- Primary Other diseases of nasal cavity and sinuses documented in this encounter Additional Health Concerns Infection Onset Date Last Indicated Resolved Time CoV-Risk 04/21/2021 04/25/2021 05/01/2021 1:44 AM EDT Assessment Noted Time PHQ-2 Depression Total Score: 0 07/11/20 18 2:55 PM EDT documented as of this encounter Care Teams Public Health Educator Relationship Specialty Start Date End Date Daljit Patel MD [address] [place] [address] PCP - General Internal Medicine 03/28/20 Merlene Liu MD [address] [place] [address] [email or web address] Endocrinology 07/10/20 Diana Lopez DO [address] [place] [address] 07/10/20 Terrence Michael MD [address] [place] [address] Internal Medicine 07/10/20 Alexsander Rahman MD [address] [place] [address] Surgical Oncology 07/10/20 Daljit Patel MD [address] [place] [phone] Insurance Assigned Provider 12/17/23 documented as of this encounter Additional Source Comments The information contained in this document represents components of the legal health record. It is not the complete legal health record.[facility]
--- OUTSIDE RECORDS SUMMARY | 2025-07-31 17:02 | XMS_ITS | Clinical Summary ---
Author Organization [facility] Address [address] [place] [address] Care Team Providers Care Handle Rounder Operator Name Role Phone Unavailable Primary Care Provider Unavailabl e Allergies Active Allergy Reactions Criticality Noted Date Comments Sulfamethoxazole-Trimethoprim 2017 hives Nitrofurantoin 05/22/2018 Medications Medication Sig Dispensed Refills Start Date End Date Status Probiotic Product (PROBIOTIC ADVANCED PO) 0 05/21/2013 Active Multiple Vitamins-Minerals (MULTIVITAMIN ADULT PO) Take 1 tablet by mouth. 0 Active Calcium Carbonate (CALTRATE 600) 1500 (600 Ca) MG TABS Take by mouth. 0 Acti ve valACYclovir (VALTREX) 1000 MG tablet TAKE 2 TABS AT THE FIRST SIGN OF OUTBREAK, AND THEN TAKE 2 TABS 12 HOURS LATER. 2 01/09/2019 Active estradiol (ESTRACE) 0.1 MG/GM vaginal cream 0 12/17/2019 Active Omeprazole (PRILOSEC PO) Take by mouth. 0 Active erythromycin (ROMYCIN) ophthalmic ointment INSTILL 1/4 INCH INTO LEFT EYE 3 TIMES A DAY X 5 DAYS 3.5 g 0 07/22/2020 Active fluticasone (FLONASE) 50 MCG/ACT nasal spray USE SPRAY 2 SPRAYS INTO EACH NOSTRIL EVERY DAY 0 07/10/2020 Active mupirocin (BACTROBAN) 2 % ointment Apply topically daily. 30 g 1 05/25/2021 Active FLUoxetine (PROzac) 10 MG capsuleIndications: 5 days a week, no tuesday or tuesday Take 1 capsule (10 mg total) by mouth daily. 90 capsule 0 09/17/2021 Active LORazepam (ATIVAN) 0.5 MG tabletIndications:A nxiety state Take 1 tablet (0.5 mg total) by mouth daily. 30 tablet 0 09/17/2021 Active Active Problems Problem Noted Date Diagnosed Date Anxiety 06/01/2013 Overview: Overview: Anxiety Endometriosis 06/01/2013 Overview: Overview: Endometriosis Hypercholesterolemia 05/21/2013 Overview: Overview: Hypercholesterolemia Hypertension 05/21/2013 Overview: Overview: Hypertension Resolved Problems Problem Noted Date Diagnosed Date Resolved Date Need for prophylactic vaccin ation and inoculation against influenza 06/27/2019 11/08/2019 Elevated TSH 10/03/2018 11/08/2019 BMI 26.0-26.9,adult 07/27/2018 06/28/20 19 Myalgia 05/22/2018 11/08/2019 Fibrocystic breast changes of both breasts 04/26/2017 11/08/2019 Urinary tract infection 06/01/201310/14 Overview: Overview: Urinary Tract Infection Atrophic vaginitis 05/21/2013 0 Overview: Overview: Postmenopausal Atrophic Vaginitis Immunizations Name Administration Dates Next Due Influenza Quad (Fluarix/Fluz one/FluLaval) 0.5mL (SD-IIV4) 07/27/2018 Influenza Quad (High Dose Fl uzone) 0.7mL >65Yrs (HD-IIV4) 06/27/2020 Influenza Trivalent (Fluzone High Dose) 0.7 mL (65yrs &>) 06/27/2019,07/27/2017,06/29/2016 Pneumococcal Conjugate PCV13 07/27/2018,06/25/20 16 Family History Medical History Relation Name Comments Hypertension Brother Basal cell carcinoma Father Basal cell carcinoma Maternal Aunt Heart disease Mother Cancer Paternal Uncle Cancer Sister 1 ovarian Relation Name Status Comments Brother Alive Father Maternal Aunt Mother Paternal Uncle Sister 1 Sister 2 Alive Social History Tobacco Use Types Packs/Day Years Used Date Smoking Tobacco: Never Smokeless Tobacco: Never Alcohol Use Standard Drinks/Week Comments No 0 (1 standard drink = 0.6 oz pur e alcohol) Sex and Gender Information Value Date Recorded Sex Assigned at Female 12/13/2018 10:42 AM EDT Gender Identity Female 12/13/2018 10:42 AM EDT Sexual Orientation Not on file Last Filed Vital Signs Vital Sign Reading Time Taken Comments Blood Pressure 140/80 08/13/2020 10:14 AM EST Pulse 75 08/13/2020 10:14 AM EST Temperature 36.3 C (97.4 F) 08/13/2020 10:14 AM EST Respiratory Rate 16 08/13/2020 10:14 AM EST Oxygen Saturation 98% 08/13/2020 10:14 AM EST Inhaled Oxygen Concentration - - Weight 63.1 kg (139 lb 3.2 oz) 08/13/2020 10:14 AM EST Height 157.5 cm (5' 2 ) 08/13/2020 10:14 AM EST Body Mass Index 25.46 08/13/2020 10:14 AM EST Plan of Treatment Health Maintenance Due Date Last Done Comments Hepatitis C Screening 1950 Shingrix-Zoster Vaccine (1 of 2) 2000 11/08/2013 Osteoporosis Screening (DEXA Scan) 04/11/2021 04/11/2019, 02/10/2017 Depression Screening 05/12/2021 05/12/2020, 05/12/2020, 05/12/2020, Additional history exists Fall Risk Assessment 05/12/2021 05/12/2020, 05/12/2020, 05/12/2020, Additional history exists Preventative Health Evaluation 05/12/2021 05/12/2020, 05/12/2020, 07/27/2018 Breast Cancer Screening (Mammogram) 07/16/2022 07/16/2020, 05/29/2019, 05/02/2018 Pneumococcal Vaccine (3 of 3 - PPSV23 or PCV20) 07/27/2023 07/27/2018, 06/25/2016, 06/19/2015 DTap / Tdap / Td (3 - Td or Tdap) 10/13/2024 10/13/2014, 11/26/2013 COVID-19 Vaccine ( season) 2025 06/11/2022, 06/19/2021, 11/25/2020, Additional history exists Influenza Vaccine (#1) 2025 2, 06/26/2022, 07/06/2021, Additional history exists RSV Adult > 60+ Yrs or (1 - 1-dose 75+ series) 2025 Colon Cancer Screening (Colonoscopy) 05/21/2029 05/21/2019, 07/13/2011, 04/12/2008 Hepatitis B Vaccines Aged Out No long er eligible based on patient's age to complete this topic RSV Ped < 20 months Aged Out No longe r eligible based on patient's age to complete this topic
--- OUTSIDE RECORDS SUMMARY | 2025-07-31 17:02 | XMS_ITS | Encounter Summary ---
Author Organization [facility] Address [address] [place] [address] [place] [phone] Phone Care Team Providers Care Dye Colorist Formulator Name Role Phone Daljit Patel MD Primary Care Provider Merlene Liu MD Unavailable [phone] Diana Lopez DO Unavailable [phone] Terrence Michael MD Unavailable Alexsander Rahman MD Unavailable [phone] Daljit Patel MD Unavailable Encounter Details Date Type Department Care Team (Late st Contact Info) Description 10/08/2024 Ancillary Orders [facility] [address] [place] [address] Daljit Patel MD [address] [place] [phone] [email or web address] Abnormal finding on breast imaging (Primary Dx) Social History Tobacco Use Types [...] Description 08/09/2025 2:00 PM EST Office Visit [facility] Internal Medicine [address] [place] [address] Daljit Patel MD [address] [place] [address] [email or web address] documented as of this encounter Results * Breast Imaging Consultation ([facility]) (10/08/2024 2:29 PM EST) Anatomical Region Laterality Modality Breast Left, Breast Right, Breast Bilateral Radiographic Imaging 10/12/2024 9:01 AM EST Addenda Addendum by Lucas Mcmillan MD on 10/25/2024 12:03 PM EST ADDENDUM: Please note, diagnostic mammography was performed on 08/06/2024. Impressions 10/16/2024 8:22 AM EST Right Breast: No mammographic evidence of malignancy. Left Breast: Upper outer quadrant grouped faint and punctate calcifications. The calcifications are considered probably benign based on morphology, distribution and paucity of number. Short interval follow-up left diagnostic mammogram is recommended in 6 months to assess for stability. Additional imaging recommended: None. Additional biopsy recommended: None. Communication of results: Results and recommendations will be communicated to the patient by the Breast Center. OVERALL ASSESSMENT: 3 PROBABLY BENIGN Short interval follow-up suggested ATTESTATION: Lucas Garcia, as teaching physician have reviewed the images, if any, for this patient's exam, and if necessary, have edited the report originally created by Lorrie Medina. Narrative 10/16/2024 8:22 AM EST Reason for exam (per EHR order): 2nd Opinion Additional clinical information obtained from the EHR: 74-year-old female presents for second opinion of outside screening and diagnostic mammogram, recommended for 6 month follow-up for probably benign calcifications in the LEFT upper outer breast. SECOND OPINION CONSULT: Consult interpretation is performed by Dr. Lucas Mcmillan on 10/12/2024. The imaging reviewed below has been performed at an outside institution. [facility] are not responsible for image quality, completeness of this examination, or accuracy of patient identity. At the request of the patient's referring physician we have been asked to interpret examination(s) pertinent to facilitating breast care at [facility]. Imaging reviewed: Mammographic images from [facility] dated 08/02/2024 and 08/06/2024. Technique: Digital mammography and tomosynthesis were performed; the tomosynthesis images are available and were reviewed. Breast Composition: The breast tissue is heterogeneously dense which may obscure small masses. RIGHT BREAST FINDINGS: Screening Mammogram Dated 08/02/2024: No abnormal masses, suspicious calcifications, or other significant findings are identified mammographically in the right breast. LEFT BREAST FINDINGS: Screening Mammogram Dated 08/02/2024: Questionable calcifications are present in the upper outer quadrant at a posterior depth. Diagnostic Mammogram Dated 08/02/2024: Additional projections and magnification views demonstrate to better advantage a few grouped faint and punctate calcifications in the upper outer quadrant at a posterior depth. Procedure Note Lucas Mcmillan MD - 10/16/2024 Reason for exam (per EHR order): 2nd Opinion Additional clinical information obtained from the EHR: 74-year-old female presents for second opinion of outside screening anddiagnostic mammogram, recommended for 6 month follow-up for probablybenign calcifications in the LEFT upper outer breast. SECOND OPINION CONSULT: Consult interpretation is performed by Dr. Lucas Mcmillan on 10/12/2024. Theimaging reviewed below has been performed at an outside institution.[facility] are not responsible for image quality, completeness of thisexamination, or accuracy of patient identity. At the request of thepatient's referring physician we have been asked to interpretexamination(s) pertinent to facilitating breast care at [facility]. Imaging reviewed: Mammographic images from [facility] dated 08/02/2024 and08/06/2024. Technique: Digital mammography and tomosynthesis were performed; thetomosynthesis images are available and were reviewed. Breast Composition: The breast tissue is heterogeneously dense which mayobscure small masses. RIGHT BREAST FINDINGS: Screening Mammogram Dated 08/02/2024: No abnormal masses, suspicious calcifications, or other significantfindings are identified mammographically in the right breast. LEFT BREAST FINDINGS: Screening Mammogram Dated 08/02/2024: Questionable calcifications are present in the upper outer quadrant at aposterior depth. Diagnostic Mammogram Dated 08/02/2024: Additional projections and magnification views demonstrate to betteradvantage a few grouped faint and punctate calcifications in the upperouter quadrant at a posterior depth. IMPRESSION: Right Breast: No mammographic evidence of malignancy. Left Breast: Upper outer quadrant grouped faint and punctate calcifications. Thecalcifications are considered probably benign based on morphology,distribution and paucity of number. Short interval follow-up leftdiagnostic mammogram is recommended in 6 months to assess for stability. Additional imaging recommended: None. Additional biopsy recommended: None. Communication of results: Results and recommendations will becommunicated to the patient by the Breast Center. OVERALL ASSESSMENT: 3 PROBABLY BENIGN Short interval follow-upsuggested ATTESTATION: Lucas Garcia, as teaching physician have reviewed theimages, if any, for this patient's exam, and if necessary, have edited thereport originally created by Lorrie Medina. us Daljit Patel MD IMG RC CONSULT Edited Result - Final documented in this encounter Visit Diagnoses Diagnosis Abnormal finding on breast imaging- Primary Abnormal finding on breast imaging documented in this encounter Additional Health Concerns Assessment Noted Time PHQ-2 Depression Total Score: 0 05/02/20 24 8:42 AM EDT documented as of this encounter Care Teams Dye Colorist Formulator Relationship Specialty Start Date End Date Daljit Patel MD [address] [place] [address] [email or web address] PCP - General Internal Medicine 03/28/20 Merlene Liu MD [address] [place] [address] [email or web address] Endocrinology 07/10/20 Diana Lopez DO [address] [place] [address] 07/10/20 Terrence Michael MD [address] [place] [address] Internal Medicine 07/10/20 Alexsander Rahman MD [address] [place] [id number] [email or web address] Surgical Oncology 07/10/20 Daljit Patel MD [address] [place] [address] [email or web address] Insurance Assigned Provider 12/17/23 documented as of this encounter Additional Source Comments The information contained in this document represents components of the legal health record. It is not the complete legal health record.[facility]
[2025-08-19 08:26] VITALS: BMI 27.9
--- NOTE | 2025-08-19 10:27 | HO.ANESPROP2 ---
Documented by User: Carmen Roe NP 08/19/25 10:27 HPI - Anesthesia Eval Consult details Narrative: 75yo F for Colonoscopy PMFSH Active Problems Active Problems: All Active Problems Hyperlipidemia (Acute) HTN (hypertension) (Acute) Past Medical History Medical History Anxiety Depression Family History Family History Father CAD (coronary artery disease) Mother No problems noted. Surgical History Surgical History H/O colonoscopy H/O bilateral oophorectomy Hx of eye surgery Social History Social History Alcohol intake: never Patient Tobacco Use Status: Never used Tobacco Use of substances other than those prescribed or required for medical reasons: No Are you DNR?: No Advance Directives: No Advance Directives Information Provided: Yes Patient : No : No Meds Allergies Allergy/AdvReac Type Severity Reaction Status Date / Time nitrofurantoin (From Allergy Intermediate HIVES Verified 11/16/22 08:37 MACROBID) sulfamethoxazole (From Allergy Intermediate HIVES Verified 11/16/22 08:37 BACTRIM) trimethoprim (From BACTRIM) Allergy Intermediate HIVES Verified 11/16/22 08:37 amoxicillin (From Augmentin) Allergy Mild Hives Verified 08/21/25 06:47 clavulanic acid (From Allergy Mild Hives Verified 08/21/25 06:47 Augmentin) nystatin (From Bio-Statin) Allergy Mild Muscle Pain Verified 11/16/22 08:37 Penicillins Allergy Mild Hives Verified 08/21/25 06:47 Sulfa (Sulfonamide Allergy Mild HIVES, Verified 08/21/25 06:47 Antibiotics) (SULFA hives,rash,angioedema (SULFONAMIDE ANTIBIOTICS)) lisinopril AdvReac Mild cough Verified 08/21/25 06:47 Home Medications ?Medication ?Instructions ?Recorded ?Confirmed ?Last Taken ?Type lorazepam 0.5 mg tablet 0.5 mg PO BID PRN Anxiety 09/14/22 08/19/25 Unknown History rosuvastatin 5 mg tablet 5 mg PO DAILY 09/14/22 08/19/25 Unknown History valsartan 80 mg tablet (Diovan) 80 mg PO DAILY 09/14/22 08/19/25 08/21/25 History fluoxetine 10 mg capsule See Rx Instructions PO DAILY 11/16/22 08/19/25 Unknown History Exam Height,Weight and Vital Signs: Height 5 ft Weight 64.864 kg Assessment and Plan Assessment Anesthesia Assessment: Chart Reviewed Documented by User: Amos Basurto MD 08/21/25 07:43 PMFSH Past Medical History Medical History Anxiety Depression Functional capacity: independent ambulation Family History Family History Father CAD (coronary artery disease) Mother No problems noted. Family history of problems with anesthesia: Yes Surgical History Surgical History H/O colonoscopy H/O bilateral oophorectomy Hx of eye surgery Social History Social History Alcohol intake: never Patient Tobacco Use Status: Never used Tobacco Use of substances other than those prescribed or required for medical reasons: No Are you DNR?: No Advance Directives: No Advance Directives Information Provided: Yes Patient : No : No Meds Allergies Allergy/AdvReac Type Severity Reaction Status Date / Time nitrofurantoin (From Allergy Intermediate HIVES Verified 11/16/22 08:37 MACROBID) sulfamethoxazole (From Allergy Intermediate HIVES Verified 11/16/22 08:37 BACTRIM) trimethoprim (From BACTRIM) Allergy Intermediate HIVES Verified 11/16/22 08:37 amoxicillin (From Augmentin) Allergy Mild Hives Verified 08/21/25 06:47 clavulanic acid (From Allergy Mild Hives Verified 08/21/25 06:47 Augmentin) nystatin (From Bio-Statin) Allergy Mild Muscle Pain Verified 11/16/22 08:37 Penicillins Allergy Mild Hives Verified 08/21/25 06:47 Sulfa (Sulfonamide Allergy Mild HIVES, Verified 08/21/25 06:47 Antibiotics) (SULFA hives,rash,angioedema (SULFONAMIDE ANTIBIOTICS)) lisinopril AdvReac Mild cough Verified 08/21/25 06:47 Home Medications ?Medication ?Instructions ?Recorded ?Confirmed ?Last Taken ?Type lorazepam 0.5 mg tablet 0.5 mg PO BID PRN Anxiety 09/14/22 08/19/25 Unknown History rosuvastatin 5 mg tablet 5 mg PO DAILY 09/14/22 08/19/25 Unknown History valsartan 80 mg tablet (Diovan) 80 mg PO DAILY 09/14/22 08/19/25 08/21/25 History fluoxetine 10 mg capsule See Rx Instructions PO DAILY 11/16/22 08/19/25 Unknown History Exam Exam Date and Time: 08/21/25 Airway Mallampati Class: II TM Dist: >3cm Neck ROM: Full Loose/Missing/Broken Teeth: No Heart: normal Lungs: normal Other: normal Assessment and Plan Assessment Anesthesia Assessment: Anesthesia Plan Discussed Final Anesthetic Review Family History of Problems with Anesthesia: Yes NPO: No ASA Class: II Final Preanesthetic Review: No Changes in Pt Med Stat, Meds/Allgs Chart Reviewed, Consent Obtained/Reviewed, Anes Risks/Benef Reviewed and DNR Form (If Appl.) Patient Risk: Low Anesthetic Plan Anesthetic Plan: MAC: Disposition: Standard PACU
[2025-08-21 06:48] VITALS: BMI 24.9
[2025-08-21 06:50] VITALS: BP 119/76; PULSE 101; RESP 16; TEMP 36.4; O2SAT 96
[2025-08-21] MEDS: Lactated Ringers 1,000 ML 100 ML IVCONT (07:17)
[2025-08-21 08:45] VITALS: BP 108/56; PULSE 72; RESP 16; TEMP 36.6; O2SAT 99
--- NOTE | 2025-08-21 08:50 | P.BOP_ITS ---
Brief Operative Note Date of Service: 08/21/25 Pre-op diagnosis: Screening Post-op diagnosis: other (Polyp) Procedure: Colonoscopy to the cecum and TI with hot snare polypectomy x 1 Surgeon: Aldo Alejo MD Anesthesia: MAC Was an Medical Record Technician used for this Procedure?: No Estimated blood loss (mL): 0 Pathology: other (A. Polyp at 60cm) Condition: stable Disposition: PACU
[2025-08-21 09:00] VITALS: BP 114/60; PULSE 67; RESP 16; O2SAT 99
--- NOTE | 2025-08-21 09:02 | OP_ITS ---
DATE OF SERVICE: 08/21/2025 SURGEON: Aldo Alejo MD INDICATIONS: The patient presents for evaluation of colorectal cancer screening. Full consent has been obtained from her for this, including risks of bleeding and perforation. PREOPERATIVE DIAGNOSIS: Colorectal cancer screening. POSTOPERATIVE DIAGNOSIS: PROCEDURE PERFORMED: Colonoscopy to cecum and terminal ileum with hot snare polypectomy x1. ESTIMATED BLOOD LOSS: COMPLICATIONS: ANESTHESIA: Medication used, monitored anesthesia care. ASSISTANTS: SPECIMENS: POSTOPERATIVE DIAGNOSES: Colorectal cancer screening, colon polyp, diverticulosis, and internal hemorrhoids. DESCRIPTION OF PROCEDURE: The patient was placed in the left lateral decubitus position. The digital rectal exam revealed no abnormalities. The Olympus video pediatric colonoscope was entered into the rectum and advanced easily to the cecum. Once in the cecum, I did identify normal-appearing cecal pouch with appendiceal orifice and a normal-appearing ileocecal valve. The terminal ileum was cannulated and appeared normal. Scope was withdrawn back in the colon. The entire cecum and ileocecal valve appeared normal. The scope was slowly withdrawn assessing all mucosal surfaces carefully. Preparation was excellent. At 60 cm was an approximately 10 mm grossly adenomatous polyp, which was removed by hot snare polypectomy and recovered by suction. The polypectomy site appeared clean, without any sign of residual polyp nor bleeding. I did not visualize any other polyps, colitis, nor angiodysplasia. There was a mild amount of sigmoid diverticulosis. In the rectum, scope was retroflexed visualizing internal hemorrhoids but no other pathology. The rectal mucosa appeared normal. Scope was straightened and withdrawn from the patient. She tolerated the procedure well and was returned to the recovery area in stable condition. IMPRESSION: 1. Colon polyp. 2. Diverticulosis. 3. Internal hemorrhoids. PLAN: The results of the pathology will be checked. Given her age and these findings, I do not think she would need any further screening colonoscopies in the future. She was advised not to use any aspirin nor NSAIDs for 1 week. She will otherwise see me as needed. MD KLEVER Waldrop/KAT / [phone]
[2025-08-21 09:15] VITALS: BP 126/76; PULSE 62; RESP 16; TEMP 36.6; O2SAT 99
[2025-08-21 09:30] VITALS: BP 101/80; PULSE 62; RESP 16; TEMP 36.6; O2SAT 99
== END 2025-08-21 10:25 | disposition home or self-care (01) ==
PROVIDERS: PCP Internal Medicine; Visit Provider Internal Medicine
PROC: 0DJD8ZZ Inspection of Lower Intestinal Tract, Via Natural or Artificial Opening Endoscopic (ICD-10-PCS; CPT 45378; principal; 2025-08-21 07:30)
DX: Z12.11 Encounter for screening for malignant neoplasm of colon (principal); Z86.0101 Personal history of adenomatous and serrated colon polyps; K57.30 Diverticulosis of large intestine without perforation or abscess without bleeding; K64.8 Other hemorrhoids; D12.4 Benign neoplasm of descending colon
CPT/HCPCS: 45385; 88305; J2003; J2704